=== PATIENT | male | born 1965 | race Caucasian/White ===

== ENCOUNTER → 2019-09-15 | Outpatient (REF) | payer SELFPAY ==
[2019-09-15 15:13] LABS: BASO # 0.1 10^3/uL (0.0-0.2); BASO % 0.8 % (0.0-1.0); EOS # 0.2 10^3/uL (0.0-0.5); EOS % 2.2 % (0.0-3.0); HEMATOCRIT 42.8 % (42.0-52.0); HEMOGLOBIN 14.2 g/dl (13.5-17.5); LYMPH # 2.8 10^3/uL (1.5-5.0); LYMPH % 32.6 % (24.0-44.0); MEAN CORPUSCULAR HEMOGLOBIN 32.8 pg (27.0-33.0); MEAN CORPUSCULAR HGB CONC 33.2 g/dl (32.0-36.5); MEAN CORPUSCULAR VOLUME 98.8 fl (80.0-96.0); MONO # 0.7 10^3/uL (0.0-0.8); NEUTROPHILS # 4.8 10^3/uL (1.5-8.5); NEUTROPHILS % 55.7 % (36.0-66.0); PLATELET COUNT, AUTOMATED 270 10^3/uL (150-450); RED BLOOD COUNT 4.33 10^6/uL (4.30-6.10); WHITE BLOOD COUNT 8.6 10^3/uL (4.0-10.0)
[2019-09-15 15:33] LABS: ALBUMIN 3.8 GM/DL (3.2-5.2); ALT/SGPT 38 U/L (12-78); BILIRUBIN,TOTAL 0.7 MG/DL (0.2-1.0); BLOOD UREA NITROGEN 10 MG/DL (7-18); CALCIUM LEVEL 9.4 MG/DL (8.5-10.1); CARBON DIOXIDE LEVEL 26 MEQ/L (21-32); CHLORIDE LEVEL 105 MEQ/L (98-107); CHOLESTEROL LEVEL 149 MG/DL (<200); CHOLESTEROL RISK RATIO 2.811 (<5); CREATININE FOR GFR 0.93 MG/DL (0.70-1.30); GLOMERULAR FILTRATION RATE > 60.0 (>56); GLUCOSE, FASTING 103 MG/DL (70-100); HDL CHOLESTEROL 53 MG/DL (>40); LDL CHOLESTEROL 45 MG/DL (<100); NON-HDL-C 96 MG/DL; POTASSIUM SERUM 4.9 MEQ/L (3.5-5.1); SODIUM LEVEL 139 MEQ/L (136-145); TOTAL PROTEIN 7.2 GM/DL (6.4-8.2); TRIGLYCERIDES LEVEL 255 MG/DL (<150)
[2019-09-15 16:03] LABS: HEMOGLOBIN A1c 5.5 %
== END ==
LOC: M SFHCADAM 07:59
PROVIDERS: ATTEND Family Medicine
DX: R53.81 Other malaise (principal); R53.1 Weakness; I25.10 Atherosclerotic heart disease of native coronary artery without angina pectoris

== ENCOUNTER 2020-08-07 10:30 | Inpatient (IN) | payer SELFPAY ==
[~2020-08-07] VITALS: Ht 172.7 cm; Wt 82.0 kg
[2020-08-07 11:14] LABS: BASO % 0.2 % (0.0-1.0); HEMATOCRIT 47.5 % (42.0-52.0); HEMOGLOBIN 15.7 g/dl (13.5-17.5); LYMPH # 1.1 10^3/uL (1.5-5.0); LYMPH % 6.3 % (24.0-44.0); MEAN CORPUSCULAR HEMOGLOBIN 30.6 pg (27.0-33.0); MEAN CORPUSCULAR HGB CONC 33.1 g/dl (32.0-36.5); MEAN CORPUSCULAR VOLUME 92.6 fl (80.0-96.0); MONO # 0.7 10^3/uL (0.0-0.8); MONO % 4.2 % (0.0-5.0); NEUTROPHILS # 15.1 10^3/uL (1.5-8.5); NEUTROPHILS % 88.9 % (36.0-66.0); PLATELET COUNT, AUTOMATED 201 10^3/uL (150-450); RED BLOOD COUNT 5.13 10^6/uL (4.30-6.10)
--- NOTE | 2020-08-07 11:18 | REP ---
INDICATION: abl pain COMPARISON: None. TECHNIQUE: Portable AP view of the chest FINDINGS: The mediastinum and cardiac silhouette are stable and within normal limits for portable technique. The lung omalley are clear without acute consolidation, effusion, or pneumothorax. Skeletal structures are intact; evidence for old healed left clavicle fracture. IMPRESSION: No acute cardiopulmonary process appreciated. <Electronically signed by Alvin Mohamud > 08/07/20 [id number]
[2020-08-07] MEDS ORDERED: ISOVUE-370 76% 100ML VIAL As Ordered ONE (11:28)
[2020-08-07] MEDS ORDERED: MORPHINE 4 MG/ML 1ML VIAL/SYRINGE (J2270) IV ONE (11:30)
[2020-08-07] MEDS ORDERED: ONDANSETRON 4MG/2ML VIAL IV ONE (11:30)
[2020-08-07 11:51] LABS: ALBUMIN 3.9 GM/DL (3.2-5.2); BILIRUBIN,DIRECT 0.4 MG/DL (0.0-0.2); FREE T4 1.05 NG/DL (0.76-1.46); THYROID STIMULATING HORMONE 0.969 uIU/ML (0.358-3.740); TOTAL PROTEIN 7.2 GM/DL (6.4-8.2)
--- NOTE | 2020-08-07 12:00 | REP ---
INDICATION: dyspnea COMPARISON: None. TECHNIQUE: Axial contrast enhanced images from the thoracic inlet to the upper abdomen using pulmonary embolus technique with multiplanar re-formations. 100 ml Isovue 370 intravenous contrast material administered without complication. This CT examination was performed using the following dose reduction techniques: Automated exposure control, adjustment of mA and/or kv according to the patient's size, and use of iterative reconstruction technique. FINDINGS: Thoracic aorta demonstrates mild atherosclerotic changes without aneurysm or dissection. Pulmonary vasculature is grossly normal and without obvious embolus. Atherosclerotic changes to the coronary arteries are also identified without cardiomegaly or pericardial effusion. Lung omalley demonstrate minimal scattered atelectasis primarily noted at the lingula and bilateral bases. No effusion. No pneumothorax. Tracheobronchial tree is patent. No adenopathy. Surrounding musculoskeletal structures are intact. IMPRESSION: 1. Minimal scattered atelectasis. 2. Atherosclerotic changes to the thoracic aorta and coronary arteries. No aortic aneurysm. No obvious pulmonary embolus. <Electronically signed by Alvin Mohamud > 08/07/20 [id number]
--- NOTE | 2020-08-07 12:04 | REP ---
INDICATION: generalized abd pain/distention. COMPARISON: None TECHNIQUE: Axial contrast-enhanced images from the lung bases to the pubic symphysis using 100 cc Isovue 370 intravenous contrast material. Coronal and sagittal reformations obtained.. This CT examination was performed using the following dose reduction techniques: Automated exposure control, adjustment of mA and/or kv according to the patient's size, and the use of iterative reconstruction technique. FINDINGS: Significant peripancreatic and generalized upper abdominal mesenteric/retroperitoneal inflammatory stranding along with small amount of ascites is most compatible with acute pancreatitis and correlation is recommended. The pancreatic parenchyma demonstrates homogeneous normal enhancement without evidence for areas of infarction. No drainable collection/abscess or pseudocyst identified. Diffuse fatty infiltration to the liver noted. Spleen is unremarkable. The gallbladder is moderately distended without obvious gallstones. The bilateral adrenal glands and kidneys are normal. The enteric system is without obstruction or definite primary acute inflammatory process. Normal terminal ileum and appendix identified in the right lower quadrant. Pelvis demonstrates layering ascites with normal bladder and prostate/seminal vesicles. No significant adenopathy. No free air. Abdominal aorta and vasculature without aneurysm or dissection. IMPRESSION: Findings described above consistent with acute pancreatitis. Hepatosteatosis. Mildly prominent gallbladder without obvious gallstones. <Electronically signed by Alvin Mohamud > 08/07/20 1200
[2020-08-07] MEDS ORDERED: NS 1,000 ML IV SCH (12:15)
[2020-08-07] MEDS: MORPHINE 4 MG/ML 1ML VIAL/SYRINGE (J2270) IV PRN ×4 (12:19→21:29)
[2020-08-07] MEDS: LR 1,000 ML IV SCH ×3 (13:26→21:29)
[2020-08-07] MEDS ORDERED: D31000TA2 PO (13:30)
[2020-08-07] MEDS ORDERED: ASPI-161 PO (13:30)
[2020-08-07] MEDS ORDERED: REST0.05 OU (13:30)
[2020-08-07] MEDS ORDERED: C-251TAB PO (13:30)
[2020-08-07] MEDS ORDERED: ATOR80TA59 PO (13:30)
[2020-08-07] MEDS ORDERED: LISI40TA PO (13:30)
--- NOTE | 2020-08-07 13:58 | HPEPDOC ---
General Date of Admission 08/07/20 Date of Service: Aug 07, 2020 Chief Complaint The patient is a 55-year-old male admitted with a reason for visit of Chest/Back/Abdominal Pain. History of Present Illness 55 year old male with PMH of pancreatitis was told was from a medication, CAD s/p angioplasty, HTN, HLD presented to ED with complaints of acute onset chest and upper abdominal pain from yesterday morning. His pain is 10/10 sharp aching in nature located in the lower part of central chest and epigastrium and going to the back. Pain worsening with laying down adn turning from side to side. Work up in the ED showed a lipase> 41394. CT abdomen pelvis showed significant peripancreatic and generalized upper abdominal mesenteric/retroperitoneal inflammatory stranding along with small amount of ascites is most compatible with acute pancreatitis. Patient also notes that his son in law just bought a farm 1 month ago and he has been drinking a lot of fresh cows milk and feels that may have precipitated the attack. He did report that he drank 2 beers the night before the pain started. Patient was admitted for Acute pancreatitis. Home Medications Scheduled Ascorbic Acid (Vitamin C) 250 Mg Tablet, 250 MG PO QHS, (Reported) Aspirin (Aspirin EC) 81 Mg Tablet.dr, 81 MG PO QHS, (Reported) Atorvastatin Calcium (Atorvastatin Calcium) 80 Mg Tablet, 80 MG PO QHS, (Reported) Cholecalciferol (Vitamin D3) (Vitamin D3) 1,000 Unit Tablet, 1,000 UNITS PO QHS, (Reported) Cyclosporine (Restasis) 0.05% Droperette, 1 DROP OU BID, (Reported) Lisinopril (Lisinopril) 40 Mg Tablet, 40 MG PO QHS, (Reported) Scheduled PRN Acetaminophen with Codeine (Acetaminophen-Cod #3 Tablet) 1 Each Tablet, 1 EA PO Q8HP PRN for MODERATE BREAKTHROUGH PAIN Allergies Coded Allergies: No Known Drug Allergies (Verified Allergy, Unknown, UNKNOWN ANTIBIOTIC CAUSED PANCREATITIS YEARS AGO PER PATIENT, 08/09/20) Past Medical History Medical History CAD, S/P NV/ Angioplasty HTN Hyperlipidemia PANCREATITIS IN 2018 CELLULITIS AFTER DOG BITE (2017) Chronic bilateral shoulder pain Surgical History L SIDED HERNIA (CHILDHOOD) NECK FUSION CORONARY ANGIOPLASTY -- NO STENT, JUST BALLOONED; [facility] 2010 Family History Significant Family History: Heart disease, Hypertension No history of pancreatitis in the family Social History * Smoker: current smoker Alcohol: occationally (3 to 4 beers every other day. ) Drugs: denies A-FIB/CHADSVASC A-FIB History Current/History of A-Fib/PAF?: No Review of Systems Constitutional: Denies: Chills, Fever, Night Sweats Eyes: Denies: Pain, Vision change ENT: Denies: Head Aches, Ear Pain, Dysphagia Skin: Denies: Rash, Lesions, Breakdown Pulmonary: Denies: Dyspnea, Cough Cardiovascular: Denies: Chest Pain, Palpitations, Orthopnea, Paroxysmal Noc. Dyspnea, Lt Headedness Gastrointestinal: Reports: Nausea, Abdominal Pain; Denies: Vomiting, Diarrhea Genitourinary: Denies: Dysuria, Frequency, Incontinence, Retention Hematologic: Denies: Bruising, Bleeding Excessively Musculoskeletal: Denies: Neck Pain, Back Pain, Joint Pain, Muscle Pain, Spasms Physical Examination General Exam: Positive: Alert, Cooperative, Mild Distress Eye Exam: Positive: PERRLA, Conjunctiva & lids normal, EOMI; Negative: Sclera icteric ENT Exam: Positive: Atraumatic, Mucous membr. moist/pink, Pharynx Normal Neck Exam: Positive: Supple; Negative: JVD, thyromegaly Chest Exam: Positive: Clear to auscultation, Normal air movement; Negative: Rales, Rhonchi, Wheezing Heart Exam: Positive: Rate Normal, Regular Rhythm, Normal S1, Normal S2; Negative: Murmurs, Rubs Abdomen Exam: Positive: Normal bowel sounds, Soft, Tenderness (in the epigastrium), Other (No guarding or rigidity.) Extremity Exam: Positive: Normal pulses; Negative: Clubbing, Cyanosis, Edema Skin Exam: Positive: Nl turgor and temperature; Negative: Breakdown, Lesion Neuro Exam: Positive: Normal Gait, Normal Speech, Cranial Nerves 3-12 NL, Reflexes 2+ Vital Signs Vital Signs Date Time Temp Pulse Resp B/P (MAP) Pulse Ox O2 Delivery O2 Flow Rate FiO2 08/07/20 12:19 18 96 08/07/20 11:46 172/80 (110) 08/07/20 11:45 108 Room Air 08/07/20 10:56 98.3 Laboratory Data Labs 24H Laboratory Tests 2 08/07/20 11:00: Immature Granulocyte % (Auto) 0.4, Neutrophils (%) (Auto) 88.9H, Lymphocytes (%) (Auto) 6.3L, Monocytes (%) (Auto) 4.2, Eosinophils (%) (Auto) 0.0, Basophils (%) (Auto) 0.2, Neutrophils # (Auto) 15.1H, Lymphocytes # (Auto) 1.1L, Monocytes # (Auto) 0.7, Eosinophils # (Auto) 0.0, Basophils # (Auto) 0.0, Nucleated Red Blood Cells % (auto) 0.0, POC Glucose (Misc Panel) 124H, POC Sodium (Misc Panel) 134L, POC Potassium (Misc Panel) 4.0, POC Chloride (Misc Panel) 99, POC Total CO2 (Misc Panel) 21.0L, POC Blood Urea Nitrogen (Misc Panel 16, POC Ionized Calcium (Misc Panel) 4.2L, POC Creatinine (Misc Panel) 1.0, POC Hematocrit (Misc Panel) 51.0, Total Bilirubin 1.0, Direct Bilirubin 0.4H, Aspartate Amino Transf (AST/SGOT) 28, Alanine Aminotransferase (ALT/SGPT) 26, Alkaline Phosphatase 85, WA-Nfw-H-Type Natriuretic Peptide 218H, Total Protein 7.2, Albumin 3.9, Albumin/Globulin Ratio 1.2, Lipase 63928J, Thyroid Stimulating Hormone (TSH) 0.969, Free Thyroxine 1.05 08/07/20 11:02: POC Lactate (Misc Panel) 1.32, POC Troponin I (Misc) 0.00 08/07/20 11:08: POC Prothrombin Time (Misc) 12.2, POC INR (Misc) 1.0 CBC/BMP Laboratory Tests 08/07/20 11:00 Assessment/Plan 55 year old male with PMH of pancreatitis was told was from a medication, CAD s/p angioplasty, HTN, HLD presented to ED with complaints of acute onset chest and upper abdominal pain from yesterday morning. Work up in the ED showed a lipase> 94570. CT abdomen pelvis showed significant peripancreatic and generalized upper abdominal mesenteric/retroperitoneal inflammatory stranding along with small amount of ascites is most compatible with acute pancreatitis. Also shows diffuse fatty infiltration to the liver noted. Spleen is unr emarkable. The gallbladder is moderately distended without obvious gallstones. Patient was admitted for Acute pancreatitis. Acute pancreatitis No gall stones seen, Triglyceride normal. NPO, IVF, morphine Pantoprazole, Zofran. Hypertension continue home meds Hyperlipidemia will hold statin for now. Plan / VTE VTE Prophylaxis Ordered?: Yes ITMBO WALTON MD Aug 07, 2020 12:33
[2020-08-07 14:20] VITALS: BP 152/96
[2020-08-07] MEDS: ENOXAPARIN 40MG/0.4ML SYRINGE (J1650 PER 10MG) SC SCH (15:31)
[2020-08-07] MEDS: PANTOPRAZOLE 40MG VIAL (C9113 PER 1) IV SCH (15:31)
[2020-08-07] MEDS ORDERED: KETOROLAC 30 MG/ML 1ML VIAL IV ONE (16:00)
[2020-08-07] MEDS: ONDANSETRON 4MG/2ML VIAL IV PRN ×2 (18:11→21:29)
[2020-08-07] MEDS ORDERED: KETOROLAC 30 MG/ML 1ML VIAL IV PRN (21:00)
[2020-08-07] MEDS ORDERED: ASPIRIN 81 MG ENTERIC TAB PO SCH (21:00)
[2020-08-07] MEDS: lisinopriL 40 MG TAB PO SCH (21:29)
[2020-08-07 22:00] VITALS: BP 152/84
[2020-08-08] VITALS (16 sets, daily range): BP systolic 122–162; BP diastolic 80–100; O2SAT 90–95
[2020-08-08] MEDS: MORPHINE 4 MG/ML 1ML VIAL/SYRINGE (J2270) IV PRN ×3 (02:16→06:22)
[2020-08-08] MEDS: LR 1,000 ML IV SCH ×4 (02:16→17:04)
[2020-08-08] MEDS: ONDANSETRON 4MG/2ML VIAL IV PRN ×2 (03:52→16:33)
[2020-08-08 06:59] LABS: HEMATOCRIT 37.3 % (42.0-52.0); HEMOGLOBIN 12.8 g/dl (13.5-17.5); MEAN CORPUSCULAR HGB CONC 34.3 g/dl (32.0-36.5); MEAN CORPUSCULAR VOLUME 93.3 fl (80.0-96.0); PLATELET COUNT, AUTOMATED 133 10^3/uL (150-450); WHITE BLOOD COUNT 14.5 10^3/uL (4.0-10.0)
[2020-08-08] MEDS ORDERED: MORPHINE 2 MG/ML 1ML VIAL (J2270) IV PRN ×2 (07:00→09:00)
[2020-08-08 07:32] LABS: BLOOD UREA NITROGEN 14 MG/DL (7-18); CALCIUM LEVEL 6.9 MG/DL (8.5-10.1); CARBON DIOXIDE LEVEL 23 MEQ/L (21-32); CHLORIDE LEVEL 104 MEQ/L (98-107); CREATININE FOR GFR 0.78 MG/DL (0.70-1.30); GLOMERULAR FILTRATION RATE > 60.0 (>56); GLUCOSE, FASTING 112 MG/DL (70-100); LIPASE 4508 U/L (73-393); POTASSIUM SERUM 3.7 MEQ/L (3.5-5.1); SODIUM LEVEL 134 MEQ/L (136-145)
[2020-08-08 08:08] LABS: LYMPHOCYTES 2 % (16-44); MONOCYTES 2 % (0-5); NEUTROPHILS 85 % (28-66)
[2020-08-08 08:09] LABS: PLATELET ESTIMATE DECREASED (NORMAL)
[2020-08-08 08:10] LABS: DOHLE BODIES 2+
[2020-08-08] MEDS: ENOXAPARIN 40MG/0.4ML SYRINGE (J1650 PER 10MG) SC SCH (08:25)
[2020-08-08] MEDS ORDERED: NS 1,000 ML IV ONE (08:45)
[2020-08-08] MEDS ORDERED: KETOROLAC 30 MG/ML 1ML VIAL IV SCH (09:00)
[2020-08-08] MEDS ORDERED: CALCIUM GLUCONATE 1,000 MG in D5W MINI-BAG PLUS 100 ML IV ONE (09:00)
[2020-08-08] MEDS ORDERED: HYDROMORPHONE HCL 0.5 MG/ 0.5 ML SYRINGE (J1170 PER 1) IV PRN (09:00)
[2020-08-08] MEDS: HYDROmorphone HCL 2 MG/ML 1ML VIAL (J1170) IV PRN ×5 (09:57→23:00)
--- NOTE | 2020-08-08 11:28 | IPNPDOC ---
Text Note Date of Service The patient was seen on 08/08/20. NOTE Subjective: Low grade fever overnight, poor urine output. Increased abdominal distension, Severe pain all night not controlled with morphine.Very tachycardic so moved to telemetry unit. Reports that he is passing gas. Physical Exam: Vitals as below General Exam: Positive: Awake, Alert, Cooperative, moderate distress. Eye Exam: Positive: PERRLA, Conjunctiva & lids normal, EOMI; Negative: Sclera icteric ENT Exam: Positive: Atraumatic, Mucous membr. moist/pink, Pharynx Normal Neck Exam: Positive: Supple; Negative: JVD, thyromegaly Chest Exam: Positive: Clear to auscultation anteriorly, Normal air movement; Diminished breath sounds at the bases. Negative: Rales, Rhonchi, Wheezing Heart Exam: Positive: Rate tachycardic, Regular Rhythm, Normal S1, Normal S2; Negative: Murmurs, Rubs Abdomen Exam: Positive: Sluggish bowel sounds, distended, generalized te nderness. Extremity Exam: Positive: Normal pulses; Negative: Clubbing, Cyanosis, Edema Skin Exam: Positive: Nl turgor and temperature; Negative: Breakdown, Lesion Labs and radiology: reviewed. Assessment and plan: 55 year old male with PMH of pancreatitis was told was from a medication, CAD s/p angioplasty, HTN, HLD presented to ED with complaints of acute onset chest and upper abdominal pain from yesterday morning. Work up in the ED showed a lipase> 73623. CT abdomen pelvis showed significant peripancreatic and generalized upper abdominal mesenteric/retroperitoneal inflammatory stranding along with small amount of ascites is most compatible with acute pancreatitis. Also shows diffuse fatty infiltration to the liver noted. Spleen is unremarkable. The gallbladder is moderately distended without obvious gallstones. Patient was admitted for Acute pancreatitis. Acute pancreatitis Second episode No gall stones seen, No CBD dilatation, Triglyceride normal. NPO, IVF, dilaudid Pantoprazole, Zofran. SIRS due to acute pancreatitis continue with IVF loading, tylenol for fever, pain control. Ileus due to acute pancreatitis. abdominal distension, sluggish bowel sounds. continue NPO, IVF Hypocalcemia will replace calcium. Hypertension continue home meds Hyperlipidemia will hold statin for now. VS,Fishbone, I+O VS, Fishbone, I+O Laboratory Tests 08/08/20 06:31 Vital Signs Date Time Temp Pulse Resp B/P (MAP) Pulse Ox O2 Delivery O2 Flow Rate FiO2 08/08/20 10:07 18 Nasal Cannula 2.0 08/08/20 10:00 99.5 08/08/20 08:00 121 139/93 (108) 93 I&O- Last 24 Hours up to 6 AM 08/08/20 06:00 Intake Total 3980 ml Output Total 550 ml Balance 3430 ml TIMBO WALTON MD Aug 08, 2020 11:28
[2020-08-08 11:46] LABS: CHOLESTEROL LEVEL 107 MG/DL (<200); CHOLESTEROL RISK RATIO 5.095 (<5); HDL CHOLESTEROL 21 MG/DL (>40); LDL CHOLESTEROL 27 MG/DL (<100); NON-HDL-C 86 MG/DL; TRIGLYCERIDES LEVEL 296 MG/DL (<150)
[2020-08-08] MEDS: PANTOPRAZOLE 40MG VIAL (C9113 PER 1) IV SCH (13:11)
[2020-08-08] MEDS: ACETAMINOPHEN TAB 650MG DOSE (2X325MG) PO PRN (17:46)
[2020-08-08] MEDS: lisinopriL 40 MG TAB PO SCH (20:02)
[2020-08-09] VITALS (19 sets, daily range): BP systolic 134–165; BP diastolic 77–94; O2SAT 88–95
[2020-08-09] MEDS: ACETAMINOPHEN TAB 650MG DOSE (2X325MG) PO PRN ×2 (01:01→07:40)
[2020-08-09] MEDS: HYDROmorphone HCL 2 MG/ML 1ML VIAL (J1170) IV PRN ×6 (02:27→23:03)
[2020-08-09] MEDS: LR 1,000 ML IV SCH ×2 (05:26→09:46)
[2020-08-09 05:53] LABS: HEMATOCRIT 31.8 % (42.0-52.0); MEAN CORPUSCULAR HEMOGLOBIN 31.5 pg (27.0-33.0); MEAN CORPUSCULAR VOLUME 95.5 fl (80.0-96.0); RED BLOOD COUNT 3.33 10^6/uL (4.30-6.10); WHITE BLOOD COUNT 12.3 10^3/uL (4.0-10.0)
[2020-08-09 05:59] LABS: HEMOGLOBIN 10.5 g/dl (13.5-17.5); PLATELET COUNT, AUTOMATED 93 10^3/uL (150-450)
[2020-08-09 06:18] LABS: ALBUMIN 2.3 GM/DL (3.2-5.2); ALT/SGPT 14 U/L (12-78); BILIRUBIN,DIRECT 0.5 MG/DL (0.0-0.2); BLOOD UREA NITROGEN 9 MG/DL (7-18); CALCIUM LEVEL 6.6 MG/DL (8.5-10.1); CARBON DIOXIDE LEVEL 26 MEQ/L (21-32); CHLORIDE LEVEL 103 MEQ/L (98-107); CREATININE FOR GFR 0.64 MG/DL (0.70-1.30); GLOMERULAR FILTRATION RATE > 60.0 (>56); GLUCOSE, FASTING 82 MG/DL (70-100); LIPASE 1103 U/L (73-393); MAGNESIUM LEVEL 1.6 MG/DL (1.8-2.4); POTASSIUM SERUM 3.5 MEQ/L (3.5-5.1); SODIUM LEVEL 135 MEQ/L (136-145); TOTAL PROTEIN 4.8 GM/DL (6.4-8.2)
[2020-08-09 06:36] LABS: LYMPHOCYTES 10 % (16-44); MONOCYTES 4 % (0-5); NEUTROPHILS 85 % (28-66); PLATELET ESTIMATE DECREASED (NORMAL)
[2020-08-09] MEDS ORDERED: CALCIUM GLUCONATE 1,000 MG in D5W MINI-BAG PLUS 100 ML IV ONE (08:00)
--- NOTE | 2020-08-09 08:59 | ECGEPIP ---
[facility] - ED Test Date: 2020-08-07 Pat Name: JAYA SCHMID Department: Room: [place] [address] Gender: Male Distribution Sales Representative: TIANA : 1965 Requested By: EVGENY GUERRERO Order Number: [id number] Reading MD: Mavis Charles Measurements Intervals [place] Rate: 108 P: 58 SC: 154 QRS: 15 QRSD: 113 T: 83 QT: 324 QTc: 435 Interpretive Statements SINUS TACHYCARDIA MODERATE INTRAVENTRICULAR CONDUCTION DELAY ABNORMAL RHYTHM ECG NSTTW abnormalities No prior Electronically Signed on 08-09-2020 8:58:50 EDT by Mavis Charles
[2020-08-09] MEDS ORDERED: MAG SULF 1GM/100ML (MAG RUN) 1 GM in IV 1 EA IV ONE (09:00)
[2020-08-09] MEDS ORDERED: ENOXAPARIN 60MG/0.6ML SYRINGE (J1650 PER 10MG) SC SCH (09:00)
--- NOTE | 2020-08-09 11:20 | IPNPDOC ---
Text Note Date of Service The patient was seen on 08/09/20. NOTE Subjective: Low grade fever overnight, poor urine output. Increased abdominal distension, Pain better controlled today. Needing oxygen overnight. Reports that he is passing gas. No bowel movement. Physical Exam: Vitals as below General Exam: Positive: Awake, Alert, Cooperative, moderate distress. Eye Exam: Positive: PERRLA, Conjunctiva & lids normal, EOMI; Negative: Sclera icteric ENT Exam: Positive: Atraumatic, Mucous membr. moist/pink, Pharynx Normal Neck Exam: Positive: Supple; Negative: JVD, thyromegaly Chest Exam: Positive: Clear to auscultation anteriorly, Diminished breath sounds at the bases. No ronchi or crackles heard. Negative: Rales, Rhonchi, Wheezing Heart Exam: Positive: Rate tachycardic, Regular Rhythm, Normal S1, Normal S2; Negative: Murmurs, Rubs Abdomen Exam: Positive: Sluggish bowel sounds, tinkling sounds heard distended, generalized tenderness. No rebound , no guarding. Extremity Exam: Positive: Normal pulses; Negative: Clubbing, Cyanosis, Edema Skin Exam: Positive: Nl turgor and temperature; Negative: Breakdown, Lesion Labs and radiology: reviewed. Assessment and plan: 55 year old male with PMH of pancreatitis was told was from a medication, CAD s/p angioplasty, HTN, HLD presented to ED with complaints of a cute onset chest and upper abdominal pain from yesterday morning. Work up in the ED showed a lipase> 46496. CT abdomen pelvis showed significant peripancreatic and generalized upper abdominal mesenteric/retroperitoneal inflammatory stranding along with small amount of ascites is most compatible with acute pancreatitis. Also shows diffuse fatty infiltration to the liver noted. Spleen is unremarkable. The gallbladder is moderately distended without obvious gallstones. Patient was admitted for Acute pancreatitis. Acute pancreatitis Second episode No gall stones seen, No CBD dilatation, Triglyceride normal. NPO, IVF, dilaudid Pantoprazole, Zofran. SIRS due to acute pancreatitis continue with IVF , tylenol for fever, pain control. Ileus due to acute pancreatitis. abdominal distension, sluggish bowel sounds. continue NPO, IVF Hypocalcemia will replace calcium. Hypomagnesemia replaced. Hypertension continue home meds Hyperlipidemia will hold statin for now. VS,Fishbone, I+O VS, Fishbone, I+O Laboratory Tests 08/09/20 05:41 Vital Signs Date Time Temp Pulse Resp B/P (MAP) Pulse Ox O2 Delivery O2 Flow Rate FiO2 08/09/20 08:52 20 Nasal Cannula 4.0 08/09/20 08:00 97.5 118 154/77 (102 93 I&O- Last 24 Hours up to 6 AM 08/09/20 06:00 Intake Total 3760 ml Output Total 1250 ml Balance 2510 ml TIMBO WALTON MD Aug 09, 2020 11:20
[2020-08-09] MEDS: D5W/0.9% SODIUM CHLORIDE 1,000 ML IV SCH (11:53)
[2020-08-09] MEDS: PANTOPRAZOLE 40MG VIAL (C9113 PER 1) IV SCH (13:15)
[2020-08-09] MEDS ORDERED: PERCOCET 5MG/325MG TAB PO PRN ×2 (13:30)
[2020-08-09] MEDS ORDERED: FLUBLOK(EGG FREE)(QUAD)INFLUENZA VACC 0.5ML SYRINGE 18YRS & OLDER IM ONE (16:00)
[2020-08-09] MEDS: ONDANSETRON 4MG/2ML VIAL IV PRN (17:45)
[2020-08-09] MEDS: lisinopriL 40 MG TAB PO SCH (20:06)
[2020-08-10] VITALS: BP 150/88
[2020-08-10] MEDS: D5W/0.9% SODIUM CHLORIDE 1,000 ML IV SCH (00:50)
[2020-08-10] MEDS: HYDROmorphone HCL 2 MG/ML 1ML VIAL (J1170) IV PRN ×8 (02:35→22:51)
[2020-08-10] MEDS: ACETAMINOPHEN TAB 650MG DOSE (2X325MG) PO PRN (02:36)
[2020-08-10 04:00] VITALS: BP 163/85
[2020-08-10 04:48] LABS: BASO % 0.1 % (0.0-1.0); EOS % 0.3 % (0.0-3.0); HEMATOCRIT 30.5 % (42.0-52.0); HEMOGLOBIN 10.2 g/dl (13.5-17.5); LYMPH # 0.7 10^3/uL (1.5-5.0); MEAN CORPUSCULAR HGB CONC 33.4 g/dl (32.0-36.5); MEAN CORPUSCULAR VOLUME 95.6 fl (80.0-96.0); MONO # 0.9 10^3/uL (0.0-0.8); MONO % 7.6 % (0.0-5.0); NEUTROPHILS % 85.2 % (36.0-66.0); PLATELET COUNT, AUTOMATED 104 10^3/uL (150-450); RED BLOOD COUNT 3.19 10^6/uL (4.30-6.10); WHITE BLOOD COUNT 11.8 10^3/uL (4.0-10.0)
[2020-08-10 05:10] LABS: BLOOD UREA NITROGEN 6 MG/DL (7-18); CALCIUM LEVEL 7.4 MG/DL (8.5-10.1); CARBON DIOXIDE LEVEL 27 MEQ/L (21-32); CHLORIDE LEVEL 102 MEQ/L (98-107); CREATININE FOR GFR 0.64 MG/DL (0.70-1.30); GLOMERULAR FILTRATION RATE > 60.0 (>56); GLUCOSE, FASTING 134 MG/DL (70-100); LIPASE 314 U/L (73-393); POTASSIUM SERUM 3.2 MEQ/L (3.5-5.1); SODIUM LEVEL 135 MEQ/L (136-145)
[2020-08-10] MEDS: KCL 40MEQ IN D5/NS 1000ML 1,000 ML IV SCH (07:15)
[2020-08-10 08:00] VITALS: BP 142/89
[2020-08-10] MEDS: KCL 10MEQ/100ML SWI (KRUN) 10 MEQ in IV 1 EA IV SCH ×2 (09:00→09:32)
[2020-08-10] MEDS ORDERED: HYDROMORPHONE HCL 0.5 MG/ 0.5 ML SYRINGE (J1170 PER 1) IV PRN (10:00)
[2020-08-10] MEDS ORDERED: SLF 3 ML SYR IV PRN (11:00)
--- NOTE | 2020-08-10 11:10 | IPNPDOC ---
Text Note Date of Service The patient was seen on 08/10/20. NOTE Subjective: Still with severe abdominal pain, could not tolerate po pain meds yesterday. Now urine output has excelsior picker up and is much surgical oncologist in color, No fevers, No nausea or vomiting. patietn upset as did not get pain meds on time last night and reports he was crying in pain all night. Requiring oxygen when sleeping. Physical Exam: Vitals as below General Exam: Positive: Awake, Alert, Cooperative, moderate distress. Eye Exam: Positive: PERRLA, Conjunctiva & lids normal, EOMI; Negative: Sclera icteric ENT Exam: Positive: Atraumatic, Mucous membr. moist/pink, Pharynx Normal Neck Exam: Positive: Supple; Negative: JVD, thyromegaly Chest Exam: Positive: Clear to auscultation anteriorly, Diminished breath sounds at the bases. No ronchi or crackles heard. Negative: Rales, Rhonchi, Wheezing Heart Exam: Positive: Rate tachycardic, Regular Rhythm, Normal S1, Normal S2; Negative: Murmurs, Rubs Abdomen Exam: Positive: Sluggish bowel sounds, tinkling sounds heard distended abdomen, generalized tenderness. No rebound , no guarding. Extremity Exam: Positive: Normal pulses; Negative: Clubbing, Cyanosis, Edema Skin Exam: Positive: Nl turgor and temperature; Negative: Breakdown, Lesion Labs and radiology: reviewed. Assessment and plan: 55 year old male with PMH of pancreatitis was told was from a medication, CAD s/p angioplasty, HTN, HLD presented to ED with complaints of acute onset chest and upper abdominal pain from yesterday morning. Work up in the ED showed a lipase> 46961. CT abdomen pelvis showed significant peripancreatic and generalized upper abdominal mesenteric/retroperitoneal inflammatory stranding along with small amount of ascites is most compatible with acute pancreatitis. Also shows diffuse fatty infiltration to the liver noted. Spleen is unremarkable. The gallbladder is moderately distended without obvious gallstones. Patient was admitted for Acute pancreatitis. Acute pancreatitis Second episode No gall stones seen, No CBD dilatation, Triglyceride normal. IVF, dilaudid Pantoprazole, Zofran. Lipase normal today, will try clears. Encourage ambulation. SIRS due to acute pancreatitis continue with IVF, pain control. Ileus due to acute pancreatitis. abdominal distension, sluggish bowel sounds. continue IVF , will try clears. Hypoxia will give incentive spirometry. Hypocalcemia will replace calcium. Hypomagnesemia replaced. Hypertension continue home meds Hyperlipidemia will hold statin for now. Thrombocytopenia so lovenox was stopped now improving. DVT prophylaxis in place. TEDS VS,Fishbone, I+O VS, Fishbone, I+O Laboratory Tests 08/10/20 04:26 Vital Signs Date Time Temp Pulse Resp B/P (MAP) Pulse Ox O2 Delivery O2 Flow Rate FiO2 08/10/20 09:38 19 08/10/20 08:00 97.9 109 142/89 (106) 98 Nasal Cannula 3.0 I&O- Last 24 Hours up to 6 AM 08/10/20 05:59 Intake Total 1290 ml Output Total 2400 ml Balance -1110 ml TIMBO WALTON MD Aug 10, 2020 11:10
[2020-08-10] MEDS: SLF 3 ML SYR IV SCH ×2 (12:04→22:30)
[2020-08-10] MEDS: PANTOPRAZOLE 40MG VIAL (C9113 PER 1) IV SCH (12:04)
[2020-08-10 15:43] VITALS: BP 159/89
[2020-08-10] MEDS: lisinopriL 40 MG TAB PO SCH (19:57)
[2020-08-10 20:00] VITALS: BP 155/87
[2020-08-11] MEDS: KCL 40MEQ IN D5/NS 1000ML 1,000 ML IV SCH ×2 (01:01→09:55)
[2020-08-11] MEDS: HYDROmorphone HCL 2 MG/ML 1ML VIAL (J1170) IV PRN ×4 (01:35→11:40)
[2020-08-11 04:00] VITALS: BP 127/81
[2020-08-11 05:42] LABS: BASO % 0.2 % (0.0-1.0); EOS # 0.1 10^3/uL (0.0-0.5); EOS % 0.5 % (0.0-3.0); HEMATOCRIT 29.1 % (42.0-52.0); HEMOGLOBIN 9.6 g/dl (13.5-17.5); LYMPH # 0.9 10^3/uL (1.5-5.0); LYMPH % 8.6 % (24.0-44.0); MEAN CORPUSCULAR HEMOGLOBIN 31.6 pg (27.0-33.0); MEAN CORPUSCULAR VOLUME 95.7 fl (80.0-96.0); MONO # 1.2 10^3/uL (0.0-0.8); MONO % 10.9 % (0.0-5.0); NEUTROPHILS # 8.3 10^3/uL (1.5-8.5); NEUTROPHILS % 78.8 % (36.0-66.0); PLATELET COUNT, AUTOMATED 133 10^3/uL (150-450); RED BLOOD COUNT 3.04 10^6/uL (4.30-6.10); WHITE BLOOD COUNT 10.5 10^3/uL (4.0-10.0)
[2020-08-11] MEDS: SLF 3 ML SYR IV SCH ×3 (06:00→20:33)
[2020-08-11 06:02] LABS: BLOOD UREA NITROGEN 6 MG/DL (7-18); CALCIUM LEVEL 7.1 MG/DL (8.5-10.1); CARBON DIOXIDE LEVEL 28 MEQ/L (21-32); CHLORIDE LEVEL 104 MEQ/L (98-107); CREATININE FOR GFR 0.59 MG/DL (0.70-1.30); GLOMERULAR FILTRATION RATE > 60.0 (>56); GLUCOSE, FASTING 136 MG/DL (70-100); LIPASE 198 U/L (73-393); POTASSIUM SERUM 3.4 MEQ/L (3.5-5.1); SODIUM LEVEL 137 MEQ/L (136-145)
[2020-08-11 08:00] VITALS: BP 148/90
[2020-08-11] MEDS ORDERED: oxyCODONE 5MG TAB PO PRN (12:15)
[2020-08-11] MEDS ORDERED: HYDROMORPHONE HCL 0.5 MG/ 0.5 ML SYRINGE (J1170 PER 1) IV PRN ×2 (12:15)
--- NOTE | 2020-08-11 12:36 | IPNPDOC ---
Text Note Date of Service The patient was seen on 08/11/20. NOTE Subjective: Still with severe abdominal pain, Now urine output has picked up and is much coal loader in color, No fevers, No nausea or vomiting. Says not getting enough pain meds at night. He reported that the pain was so bad that he had almost stopped breathing last night and his oxygen had gone down. Abdominal distension still bad will get abdominal xray. Physical Exam: Vitals as below General Exam: Positive: Awake, Alert, Cooperative, moderate distress. Eye Exam: Positive: PERRLA, Conjunctiva & lids normal, EOMI; Negative: Sclera icteric ENT Exam: Positive: Atraumatic, Mucous membr. moist/pink, Pharynx Normal Neck Exam: Positive: Supple; Negative: JVD, thyromegaly Chest Exam: Positive: Clear to auscultation anteriorly, Diminished breath sounds at the bases. No ronchi or crackles heard. Negative: Rales, Rhonchi, Wheezing Heart Exam: Positive: Rate tachycardic, Regular Rhythm, Normal S1, Normal S2; Negative: Murmurs, Rubs Abdomen Exam: Positive: Bowel sounds good, distended abdomen but seems less tense, generalized tenderness. No rebound , no guarding. Extremity Exam: Positive: Normal pulses; Negative: Clubbing, Cyanosis, Edema Skin Exam: Positive: Nl turgor and temperature; Negative: Breakdown, Lesion Labs and radiology: reviewed. Assessment and plan: 55 year old male with PMH of pancreatitis was told was from a medication, CAD s/p angioplasty, HTN, HLD presented to ED with complaints of acute onset chest and upper abdominal pain from yesterday morning. Work up in the ED showed a lipase> 96386. CT abdomen pelvis showed significant peripancreatic and generalized upper abdominal mesenteric/retroperitoneal inflammatory stranding along with small amount of ascites is most compatible with acute pancreatitis. Also shows diffuse fatty infiltration to the liver noted. Spleen is unremarkable. The gallbladder is moderately distended without obvious gallstones. Patient was admitted for Acute pancreatitis. Acute pancreatitis Second episode No gall stones seen, No CBD dilatation, Triglyceride normal. IVF, dilaudid Pantoprazole, Zofran. Lipase normal today, will try clears. Encourage ambulation. will reduce dose of dilaudid and try oxycodone. SIRS due to acute pancreatitis continue with IVF, pain control. Ileus due to acute pancreatitis. continue IVF , clears. abdominal xray. Hypoxia will give incentive spirometry. Hypocalcemia will replace calcium. Hypomagnesemia replaced. Hypertension continue home meds Hyperlipidemia will hold statin for now. Thrombocytopenia so lovenox was stopped now improving. DVT prophylaxis in place. TEDS VS,Fishbone, I+O VS, Fishbone, I+O Laboratory Tests 08/11/20 05:16 Vital Signs Date Time Temp Pulse Resp B/P (MAP) Pulse Ox O2 Delivery O2 Flow Rate FiO2 08/11/20 12:10 20 08/11/20 08:00 3.0 08/11/20 08:00 98.9 112 148/90 (109) 92 Nasal Cannula I&O- Last 24 Hours up to 6 AM 08/11/20 06:00 Intake Total 1661 ml Output Total 1550 ml Balance 111 ml TIMBO WALTON MD Aug 11, 2020 12:36
[2020-08-11] MEDS: PANTOPRAZOLE 40MG VIAL (C9113 PER 1) IV SCH (13:12)
--- NOTE | 2020-08-11 14:44 | REP ---
INDICATION: abdominal distension. COMPARISON: Comparison CT study abdomen and pelvis August 07, 2020.. TECHNIQUE: Single supine view. FINDINGS: There is mild gaseous distention of the transverse colon and a few loops of air distended small bowel are seen scattered in the left and right mid mid abdomen. Findings consistent with mild persistent ileus. This is similar to the prior CT study bowel gas pattern. Vascular calcifications noted. Psoas margins are symmetric. IMPRESSION: Persistent ileus pattern in the bowel gas. <Electronically signed by Dionte Mcbride > 08/11/20 1972
[2020-08-11 16:00] VITALS: BP 137/77
[2020-08-11] MEDS: ACETAMINOPHEN TAB 650MG DOSE (2X325MG) PO PRN (16:23)
[2020-08-11 20:00] VITALS: BP 157/83
[2020-08-11] MEDS: lisinopriL 40 MG TAB PO SCH (20:32)
[2020-08-12] MEDS: ACETAMINOPHEN TAB 650MG DOSE (2X325MG) PO PRN (00:43)
[2020-08-12 01:35] VITALS: BP 151/83
[2020-08-12] MEDS: KCL 40MEQ IN D5/NS 1000ML 1,000 ML IV SCH ×2 (04:58→12:58)
[2020-08-12] MEDS: SLF 3 ML SYR IV SCH ×3 (05:02→22:00)
[2020-08-12 06:00] VITALS: BP 133/80
[2020-08-12 06:59] LABS: BASO % 0.2 % (0.0-1.0); EOS # 0.1 10^3/uL (0.0-0.5); EOS % 0.7 % (0.0-3.0); HEMATOCRIT 27.8 % (42.0-52.0); HEMOGLOBIN 9.2 g/dl (13.5-17.5); LYMPH # 1.1 10^3/uL (1.5-5.0); LYMPH % 11.3 % (24.0-44.0); MEAN CORPUSCULAR HGB CONC 33.1 g/dl (32.0-36.5); MEAN CORPUSCULAR VOLUME 93.6 fl (80.0-96.0); MONO # 1.3 10^3/uL (0.0-0.8); NEUTROPHILS # 7.2 10^3/uL (1.5-8.5); NEUTROPHILS % 72.4 % (36.0-66.0); PLATELET COUNT, AUTOMATED 173 10^3/uL (150-450); RED BLOOD COUNT 2.97 10^6/uL (4.30-6.10); WHITE BLOOD COUNT 9.9 10^3/uL (4.0-10.0)
[2020-08-12 07:11] LABS: BLOOD UREA NITROGEN 6 MG/DL (7-18); CALCIUM LEVEL 7.6 MG/DL (8.5-10.1); CARBON DIOXIDE LEVEL 24 MEQ/L (21-32); CHLORIDE LEVEL 106 MEQ/L (98-107); CREATININE FOR GFR 0.58 MG/DL (0.70-1.30); GLOMERULAR FILTRATION RATE > 60.0 (>56); GLUCOSE, FASTING 138 MG/DL (70-100); LIPASE 239 U/L (73-393); POTASSIUM SERUM 3.4 MEQ/L (3.5-5.1); SODIUM LEVEL 138 MEQ/L (136-145)
[2020-08-12] MEDS ORDERED: POTASSIUM CHLORIDE 10 MEQ SR TABLET PO ONE (10:45)
[2020-08-12] MEDS: ACETAMINOPH W/CODEINE #3 TAB UD PO PRN ×3 (11:10→23:17)
[2020-08-12] MEDS: PANTOPRAZOLE 40MG VIAL (C9113 PER 1) IV SCH (12:58)
[2020-08-12 14:00] VITALS: BP 123/80
--- NOTE | 2020-08-12 15:55 | IPNPDOC ---
Text Note Date of Service The patient was seen on 08/12/20. NOTE Hospitalist Progress Note Subjective: Patient reports that his pain is significantly improved today, his last dose of narcotics was at approximately midnight. He did tolerate his clear liquids for breakfast this morning, will advance to soft diet for lunch. Otherwise, he does not have any other acute complaints today, and the remainder of his review of systems is negative. Objective: General: Awake, alert, oriented 3. He is in no acute distress. HEENT: Head normocephalic, atraumatic, sclera are nonicteric. Hearing is grossly intact to conversation. Respiratory: Clear to auscultation bilaterally with no wheezes, rales, or rhonc hi. Cardiovascular: Regular rate and rhythm, with no rubs, gallops, or murmur. Abdomen: Soft, still somewhat tender to deep palpation, nondistended, no hepatosplenomegaly appreciated. Bowel sounds present. Extremities: 2+ pulses in the radial and dorsalis pedis bilaterally. No evidence of clubbing or cyanosis. Assessment/Plan: -Acute pancreatitis (second episode) Advance diet as tolerated. Pain is significantly improved today: Discontinue Dilaudid and oxycodone, continue with Tylenol with codeine. Continue IV fluids, as needed Zofran. Will discontinue IV Protonix, and switch him over to oral omeprazole a lower dose, he typically does not take a PPI at home. -SIRS secondary to acute pancreatitis Resolved -Ileus Good bowel sounds today, less pain with oral intake. Clinically improving. -Hypoxia Only on 1 L this morning, will continue to wean him off. He is not on oxygen at home. -Hypocalcemia Replaced -Hypomagnesemia Replaced -Hypokalemia Replaced -Hypertension Continue home dose of lisinopril -Hyperlipidemia Hold statin -Thrombocytopenia Now resolved -DVT prophylaxis Teds and sequentials VS,Fishbone, I+O VS, Fishbone, I+O Laboratory Tests 08/12/20 06:16 08/12/20 06:17 Vital Signs Date Time Temp Pulse Resp B/P (MAP) Pulse Ox O2 Delivery O2 Flow Rate FiO2 08/12/20 14:00 99.5 117 16 123/80 (94) 98 Room Air 08/12/20 06:00 2.0 I&O- Last 24 Hours up to 6 AM 08/12/20 06:00 Intake Total 1020 ml Output Total 600 ml Balance 420 ml BIJAN TRACY DO Aug 12, 2020 15:55
[2020-08-12] MEDS: lisinopriL 40 MG TAB PO SCH (20:08)
[2020-08-12 22:00] VITALS: BP 152/88
[2020-08-13] MEDS: KCL 40MEQ IN D5/NS 1000ML 1,000 ML IV SCH (02:53)
[2020-08-13] MEDS: SLF 3 ML SYR IV SCH (05:02)
[2020-08-13 06:00] VITALS: BP 152/89
[2020-08-13] MEDS: ACETAMINOPH W/CODEINE #3 TAB UD PO PRN (06:10)
[2020-08-13 06:24] LABS: BASO % 0.3 % (0.0-1.0); EOS # 0.1 10^3/uL (0.0-0.5); EOS % 0.7 % (0.0-3.0); HEMOGLOBIN 9.6 g/dl (13.5-17.5); LYMPH # 1.3 10^3/uL (1.5-5.0); LYMPH % 11.3 % (24.0-44.0); MEAN CORPUSCULAR HGB CONC 33.1 g/dl (32.0-36.5); MEAN CORPUSCULAR VOLUME 93.5 fl (80.0-96.0); MONO # 1.3 10^3/uL (0.0-0.8); MONO % 11.9 % (0.0-5.0); NEUTROPHILS % 71.3 % (36.0-66.0); PLATELET COUNT, AUTOMATED 207 10^3/uL (150-450); WHITE BLOOD COUNT 11.2 10^3/uL (4.0-10.0)
[2020-08-13 06:34] LABS: BLOOD UREA NITROGEN 7 MG/DL (7-18); CALCIUM LEVEL 8.2 MG/DL (8.5-10.1); CARBON DIOXIDE LEVEL 23 MEQ/L (21-32); CHLORIDE LEVEL 105 MEQ/L (98-107); CREATININE FOR GFR 0.68 MG/DL (0.70-1.30); GLOMERULAR FILTRATION RATE > 60.0 (>56); GLUCOSE, FASTING 158 MG/DL (70-100); LIPASE 286 U/L (73-393); POTASSIUM SERUM 3.7 MEQ/L (3.5-5.1); SODIUM LEVEL 135 MEQ/L (136-145)
[2020-08-13] MEDS ORDERED: OMEPRAZOLE 20 MG CAP PO SCH (09:00)
[2020-08-13] MEDS ORDERED: ACET1TAB16 PO (10:19)
--- NOTE | 2020-08-13 18:22 | DS.PDOC ---
Discharge Summary General Date of Admission Aug 07, 2020 at 12:20 Date of Discharge 08/13/2020 Discharge Summary PRIMARY CARE PHYSICIAN: Bree SpragueO. ATTENDING AT TIME OF DISCHARGE: Dr. Bijan Tracy, DISCHARGE DIAGNOS(E)S: Acute pancreatitis Surgeries Ileus Hypoxia Hypocalcemia Hypomagnesemia Hypokalemia Hypertension Hyperlipidemia Thrombocytopenia HPI & HOSPITAL COURSE: The patient presented to the emergency department with significant abdominal pain. He states that he was out working hard, perhaps little dehydrated, and in lieu of drinking water had a few beers instead, and suspects that this may have precipitated his episode. CT abdomen and pelvis showed significant peripancreatic and generalized upper abdominal mesenteric/retroperitoneal inflammatory stranding along with a small amount of ascites which is most compat ible with acute pancreatitis, also had a lipase of greater than 14,000 upon admission. No gallstones seen, no CBD dilation, triglycerides normal. Patient treated with aggressive IV fluids and pain medication. Hospitalization was complicated and perhaps prolonged due to ileus as well. He did have an episode of thrombocytopenia therefore Lovenox was discontinued, and this returned to normal without intervention. Otherwise, electrolytes were replaced on an as- needed basis. His pain slowly improved, and he is now tolerating a soft diet without much issue. He appears to be ready and safe for discharge at this time. PHYSICAL EXAMINATION ON DISCHARGE: GENERAL: Awake, alert, oriented 3. He is in no acute distress. CARDIOVASCULAR EXAMINATION: Regular rate and rhythm, with no rubs, gallops, or murmur. RESPIRATORY EXAMINATION: Clear to auscultation bilaterally with no wheezes, rales, or rhonchi. ABDOMINAL EXAMINATION: Soft, minimally tender with deep palpation, nondistended. Bowel sounds present. No guarding or rigidity. EXTREMITIES: No clubbing or edema noted. 2+ pulses in the radial bilaterally. DISPOSITION: Home DISCHARGE INSTRUCTIONS: Follow-up with primary care provider within the next 7-14 days. Recommend low- fat, low residue diet to begin with, and then slowly returned to normal diet. Activity as tolerated.. If symptoms return, or if you experience worsening of your symptoms, please call your doctor or return to the emergency department. Vital Signs/I&Os Vital Signs Date Time Temp Pulse Resp B/P (MAP) Pulse Ox O2 Delivery O2 Flow Rate FiO2 08/13/20 06:40 16 Room Air 08/13/20 06:00 98.6 85 152/89 (110) 95 08/12/20 06:00 2.0 I&O- Last 24 Hours up to 6 AM 08/13/20 06:00 Intake Total 3100 ml Output Total 3050 ml Balance 50 ml Laboratory Data Labs 24H Laboratory Tests 2 08/13/20 05:34: Immature Granulocyte % (Auto) 4.5H, Neutrophils (%) (Auto) 71.3H, Lymphocytes (%) (Auto) 11.3L, Monocytes (%) (Auto) 11.9H, Eosinophils (%) (Auto) 0.7, Basophils (%) (Auto) 0.3, Neutrophils # (Auto) 8.0, Lymphocytes # (Auto) 1.3L, Monocytes # (Auto) 1.3H, Eosinophils # (Auto) 0.1, Basophils # (Auto) 0.0, Nucleated Red Blood Cells % (auto) 0.0, Anion Gap 7L, Glomerular Filtration Rate > 60.0, Calcium Level 8.2L, Lipase 286 CBC/BMP Laboratory Tests 08/13/20 05:34 Discharge Medications Scheduled Ascorbic Acid (Vitamin C) 250 Mg Tablet, 250 MG PO QHS, (Reported) Aspirin (Aspirin EC) 81 Mg Tablet.dr, 81 MG PO QHS, (Reported) Atorvastatin Calcium (Atorvastatin Calcium) 80 Mg Tablet, 80 MG PO QHS, (Reported) Cholecalciferol (Vitamin D3) (Vitamin D3) 1,000 Unit Tablet, 1,000 UNITS PO QHS, (Reported) Cyclosporine (Restasis) 0.05% Droperette, 1 DROP OU BID, (Reported) Lisinopril (Lisinopril) 40 Mg Tablet, 40 MG PO QHS, (Reported) Scheduled PRN Acetaminophen with Codeine (Acetaminophen-Cod #3 Tablet) 1 Each Tablet, 1 EA PO Q8HP PRN for MODERATE BREAKTHROUGH PAIN Allergies Coded Allergies: No Known Drug Allergies (Verified Allergy, Unknown, UNKNOWN ANTIBIOTIC CAUSED PANCREATITIS YEARS AGO PER PATIENT, 08/09/20) BIJAN TRACY DO Aug 13, 2020 18:22
== END 2020-08-13 11:55 | disposition home or self-care (01) | DRG 282 ==
LOC: M ED 10:30 → M ED INP 12:20 → M MS5PR 14:15 → M PCU 08-08 07:45 → M MSPAV 08-12 01:32
PROVIDERS: ADMIT Internal Medicine Nephrology; ATTEND Neuromusculoskeletal Medicine & OMM
DX: K85.90 Acute pancreatitis without necrosis or infection, unspecified (principal); D69.6 Thrombocytopenia, unspecified; E83.42 Hypomagnesemia; E83.51 Hypocalcemia; K56.7 Ileus, unspecified; I10 Essential (primary) hypertension; E87.6 Hypokalemia; E78.5 Hyperlipidemia, unspecified; Z79.82 Long term (current) use of aspirin; Z79.899 Other long term (current) drug therapy; I25.10 Atherosclerotic heart disease of native coronary artery without angina pectoris; I25.2 Old myocardial infarction

== ENCOUNTER 2021-04-08 18:50 | Emergency (ER) | payer MEDICAID, OTHER, SELFPAY ==
[~2021-04-08] VITALS: Ht 172.7 cm; Wt 75.0 kg
[~2021-04-08 18:50] MED LIST: ACET1TAB16 PO; ASPI-161 PO; ATOR80TA59 PO; C-251TAB PO; D31000TA2 PO; LISI40TA4 PO; REST0.05 OU
[2021-04-08 18:52] VITALS: BP 159/87
[2021-04-08] MEDS ORDERED: AMLO25TA PO (19:01)
--- NOTE | 2021-04-08 19:59 | REP ---
INDICATION: TRAUMA COMPARISON: None. TECHNIQUE: AP, lateral, bilateral oblique views left 1st through 5th phalanges. FINDINGS: The osseous structures and joint spaces are intact and normal. There is no evidence for acute fracture or dislocation. No subcutaneous emphysema or radiodense foreign body. IMPRESSION: No acute fracture or dislocation. <Electronically signed by Alvin Mohamud > 04/08/211954
== END 2021-04-08 21:30 | disposition left against medical advice (07) ==
LOC: M ED 18:50
DX: Z53.21 Procedure and treatment not carried out due to patient leaving prior to being seen by health care provider (principal)

== ENCOUNTER → 2021-06-22 | Outpatient (CLI) | payer OTHER ==
[~2021-06-22] MED LIST changes: +AMLO25TA PO
--- NOTE | 2021-06-22 11:57 | REP ---
INDICATION: EVAL FOR RECURRENT LEFT HERNIA. COMPARISON: None. TECHNIQUE: Real-time sonographic evaluation of the left inguinal region. FINDINGS: No abnormalities are noted. IMPRESSION: Unremarkable exam <Electronically signed by Damaso Cummins > 06/22/21 [id number]
== END ==
LOC: M RAD 11:16
PROVIDERS: ATTEND Surgery
DX: S76.012A Strain of muscle, fascia and tendon of left hip, initial encounter (principal); X58.XXXA Exposure to other specified factors, initial encounter; Y92.9 Unspecified place or not applicable

== ENCOUNTER → 2021-08-22 | Outpatient (CLI) | payer BC ==
[2021-08-22 14:04] LABS: HEMATOCRIT 43.6 % (42.0-52.0); HEMOGLOBIN 14.7 g/dl (13.5-17.5); MEAN CORPUSCULAR HEMOGLOBIN 32.3 pg (27.0-33.0); MEAN CORPUSCULAR HGB CONC 33.7 g/dl (32.0-36.5); MEAN CORPUSCULAR VOLUME 95.8 fl (80.0-96.0); PLATELET COUNT, AUTOMATED 249 10^3/uL (150-450); RED BLOOD COUNT 4.55 10^6/uL (4.30-6.10); WHITE BLOOD COUNT 7.5 10^3/uL (4.0-10.0)
[2021-08-22 15:04] LABS: ALBUMIN 3.9 GM/DL (3.2-5.2); ALT/SGPT 27 U/L (12-78); BILIRUBIN,TOTAL 0.5 MG/DL (0.2-1.0); BLOOD UREA NITROGEN 9 MG/DL (7-18); CALCIUM LEVEL 9.2 MG/DL (8.5-10.1); CARBON DIOXIDE LEVEL 23 MEQ/L (21-32); CHLORIDE LEVEL 103 MEQ/L (98-107); CHOLESTEROL LEVEL 141 MG/DL (<200); CHOLESTEROL RISK RATIO 4.147 (<5); CPK CREATINE PHOSPHOKINASE 174 U/L (39-308); CREATININE FOR GFR 0.88 MG/DL (0.70-1.30); GLOMERULAR FILTRATION RATE > 60.0 (>56); GLUCOSE, FASTING 128 MG/DL (70-100); HDL CHOLESTEROL 34 MG/DL (>40); LDL CHOLESTEROL 63 MG/DL (<100); NON-HDL-C 107 MG/DL; POTASSIUM SERUM 4.8 MEQ/L (3.5-5.1); SODIUM LEVEL 136 MEQ/L (136-145); TOTAL PROTEIN 6.9 GM/DL (6.4-8.2); TRIGLYCERIDES LEVEL 220 MG/DL (<150)
== END ==
LOC: M PLALAB 09:22
PROVIDERS: ATTEND Physician Assistant Medical
DX: Z12.5 Encounter for screening for malignant neoplasm of prostate (principal); E78.00 Pure hypercholesterolemia, unspecified; K86.1 Other chronic pancreatitis
CPT/HCPCS: 36415; 80053; 80061; 82550; 83525; 85027; G0103

== ENCOUNTER → 2021-08-23 | Outpatient (CLI) | payer BC ==
--- NOTE | 2021-08-23 13:37 | REP ---
INDICATION: FLANK PAIN, STONE PROTOCOL. COMPARISON: 08/07/2020 CT with contrast. TECHNIQUE: Noncontrast scanning through the abdomen and pelvis with coronal and sagittal reconstructions. FINDINGS: CT abdomen: Lung bases are clear without infiltrate, effusion or atelectasis. The heart is not enlarged there is no pericardial thickening or effusion no hiatal hernia. Liver, spleen, gallbladder, adrenal glands and stomach are grossly unremarkable. Pancreas has a dilated pancreatic duct and pancreatic pseudocyst at its tail measuring 4.4 x 4.4 x 3.9 cm. The extensive peripancreatic edema and fluid on the CT 1 year ago is resolved. There are couple of calcifications in the region of the pancreatic tail which may be related to his prior pancreatitis there also some in the pancreatic head region. No calcified gallstone in the gallbladder or kayla hepatis. Duodenum unremarkable. No inflammatory changes in the peripancreatic region the aorta has atherosclerotic calcifications without aneurysm. No pathologic sized periaortic, other retroperitoneal or mesenteric lymphadenopathy. There is an accessory left renal vein which has a retroaortic course along with a normal preaortic left main renal vein. The kidneys show no stone, mass, hydronephrosis, cyst or perinephric fluid see no hydroureter or ureteral stone on either side. Small bowel loops grossly intact. The colon shows scattered stool and gas without signs of colitis or diverticulitis. Cecum unremarkable and appendix normal. Some mild interposed small bowel loops between the anterior margin of the liver and the abdominal/chest wall. No ascites in the abdomen. I see no perforation or free air in the abdomen and pelvis on lung window review of all CT slices. Bone windows show marginal osteophytes lumbar and lower thoracic spines without destructive lesion or compression deformity. Some facet arthropathy noted. Visualized ribs intact. CT pelvis: The sacrum, SI joints, pelvis and hips do show degenerative changes without destructive lesion or fracture small bowel loops are normal caliber distal left colon, sigmoid and rectum grossly intact. There is no ascites in the pelvis on current study no ventral or inguinal hernia nor pathologic sized inguinal adenopathy. Iliac and femoral vessels with atherosclerotic calcifications but no aneurysm. Bladder without mass, wall thickening or stone. No dilated distal ureter or stone ureteral stone seen. IMPRESSION: 1. Clearing of the peripancreatic edema the inflammatory change and fluid since the study from 1 year ago. However, there is a 4.4 cm pancreatic pseudocyst at the tail the pancreas is a new finding in its entirety. 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 It has a few calcifications 1 margin. Pancreatic duct is mildly prominent but no other findings, peripancreatic pathologic size nodes or edema. 2. Liver, spleen, gallbladder, adrenal glands and kidneys without acute finding. Specifically there is no renal, ureteral or bladder stone, hydronephrosis or mass involving those organs. 3. Colon, small bowel loops, stomach and bony structures grossly intact without acute finding. <Electronically signed by Fernando Chávez > 08/23/21 [id number]
== END ==
LOC: M RAD 12:52
PROVIDERS: ATTEND Physician Assistant Medical
DX: K86.3 Pseudocyst of pancreas (principal); R10.9 Unspecified abdominal pain

== ENCOUNTER → 2021-08-23 | Outpatient (REF) | payer BC ==
[2021-08-23 13:42] LABS: APPEARANCE, URINE CLEAR (CLEAR); BACTERIA, URINE AUTO NEGATIVE (NEGATIVE); BILIRUBIN, URINE AUTO NEGATIVE (NEGATIVE); BLOOD, URINE BLOOD NEGATIVE (NEGATIVE); COLOR, URINE YELLOW (YELLOW); GLUCOSE, URINE (UA) AUTO NEGATIVE (NEGATIVE); KETONE, URINE AUTO NEGATIVE (NEGATIVE); LEUKOCYTE ESTERASE, URINE AUTO NEGATIVE (NEGATIVE); MUCUS, URINE SMALL (NEGATIVE); NITRITE, URINE AUTO NEGATIVE (NEGATIVE); PROTEIN, URINE AUTO NEGATIVE (NEGATIVE); RBC, URINE AUTO 1 /HPF (0-3); SPECIFIC GRAVITY URINE AUTO 1.009 (1.002-1.035); SQUAMOUS EPITHELIAL CELL UR AU 0 /HPF (0-6); UROBILINOGEN, URINE AUTO 0.2 mg/dL (0.0-2.0); WBC, URINE AUTO 0 /HPF (0-3)
== END ==
LOC: M SFHCPLAZ 12:51
PROVIDERS: ATTEND Physician Assistant Medical
DX: R31.0 Gross hematuria (principal)

== ENCOUNTER → 2021-09-05 | Outpatient (REF) | payer BC, OTHER ==
[2021-09-05 18:04] LABS: APPEARANCE, URINE CLEAR (CLEAR); BACTERIA, URINE AUTO NEGATIVE (NEGATIVE); BILIRUBIN, URINE AUTO NEGATIVE (NEGATIVE); BLOOD, URINE BLOOD NEGATIVE (NEGATIVE); COLOR, URINE YELLOW (YELLOW); GLUCOSE, URINE (UA) AUTO 1+ mg/dL (NEGATIVE); KETONE, URINE AUTO NEGATIVE (NEGATIVE); LEUKOCYTE ESTERASE, URINE AUTO NEGATIVE (NEGATIVE); NITRITE, URINE AUTO NEGATIVE (NEGATIVE); PROTEIN, URINE AUTO NEGATIVE (NEGATIVE); RBC, URINE AUTO 1 /HPF (0-3); SQUAMOUS EPITHELIAL CELL UR AU 0 /HPF (0-6); UROBILINOGEN, URINE AUTO 0.2 mg/dL (0.0-2.0); WBC, URINE AUTO 0 /HPF (0-3)
== END ==
LOC: M SMT 16:50
PROVIDERS: ATTEND Urology
DX: R10.32 Left lower quadrant pain (principal)

== ENCOUNTER → 2021-09-11 | Outpatient (CLI) | payer BC, OTHER ==
[~2021-09-11] MED LIST changes: +AMIT10TA7 PO; +AMLO1TAB24 PO; +CREO3000 PO; +ONDA4INJ4 IV; +TRAM50TA2 PO
[2021-09-11 10:39] LABS: APPEARANCE, URINE CLEAR (CLEAR); BACTERIA, URINE AUTO NEGATIVE (NEGATIVE); BILIRUBIN, URINE AUTO NEGATIVE (NEGATIVE); BLOOD, URINE BLOOD NEGATIVE (NEGATIVE); COLOR, URINE YELLOW (YELLOW); GLUCOSE, URINE (UA) AUTO NEGATIVE (NEGATIVE); KETONE, URINE AUTO NEGATIVE (NEGATIVE); LEUKOCYTE ESTERASE, URINE AUTO NEGATIVE (NEGATIVE); NITRITE, URINE AUTO NEGATIVE (NEGATIVE); PROTEIN, URINE AUTO NEGATIVE (NEGATIVE); RBC, URINE AUTO 2 /HPF (0-3); SPECIFIC GRAVITY URINE AUTO 1.014 (1.002-1.035); SQUAMOUS EPITHELIAL CELL UR AU 0 /HPF (0-6); UROBILINOGEN, URINE AUTO 0.2 mg/dL (0.0-2.0); WBC, URINE AUTO 1 /HPF (0-3)
[2021-09-11 11:07] LABS: BLOOD UREA NITROGEN 8 MG/DL (7-18); CALCIUM LEVEL 9.2 MG/DL (8.5-10.1); CARBON DIOXIDE LEVEL 26 MEQ/L (21-32); CHLORIDE LEVEL 109 MEQ/L (98-107); CREATININE FOR GFR 0.78 MG/DL (0.70-1.30); GLOMERULAR FILTRATION RATE > 60.0 (>56); GLUCOSE, FASTING 135 MG/DL (70-100); POTASSIUM SERUM 4.5 MEQ/L (3.5-5.1); SODIUM LEVEL 139 MEQ/L (136-145)
== END ==
LOC: M PLALAB 09:10
PROVIDERS: ATTEND Urology
DX: R10.32 Left lower quadrant pain (principal)

== ENCOUNTER → 2021-09-20 | Outpatient (CLI) | payer BC ==
[~2021-09-20] MED LIST changes: -AMIT10TA7 PO; -AMLO1TAB24 PO; -CREO3000 PO; -ONDA4INJ4 IV; -TRAM50TA2 PO
[2021-09-20 15:47] LABS: BASO # 0.1 10^3/uL (0.0-0.2); BASO % 0.6 % (0.0-1.0); EOS # 0.2 10^3/uL (0.0-0.5); EOS % 1.8 % (0.0-3.0); HEMATOCRIT 46.3 % (42.0-52.0); HEMOGLOBIN 15.3 g/dl (13.5-17.5); LYMPH # 2.7 10^3/uL (1.5-5.0); LYMPH % 25.3 % (24.0-44.0); MEAN CORPUSCULAR HEMOGLOBIN 31.6 pg (27.0-33.0); MEAN CORPUSCULAR VOLUME 95.7 fl (80.0-96.0); MONO # 0.7 10^3/uL (0.0-0.8); MONO % 6.9 % (2.0-8.0); NEUTROPHILS # 6.9 10^3/uL (1.5-8.5); NEUTROPHILS % 64.8 % (36.0-66.0); PLATELET COUNT, AUTOMATED 254 10^3/uL (150-450); RED BLOOD COUNT 4.84 10^6/uL (4.30-6.10); WHITE BLOOD COUNT 10.6 10^3/uL (4.0-10.0)
[2021-09-20 16:09] LABS: ALBUMIN 3.9 GM/DL (3.2-5.2); ALT/SGPT 24 U/L (12-78); BILIRUBIN,TOTAL 0.4 MG/DL (0.2-1.0); BLOOD UREA NITROGEN 6 MG/DL (7-18); CALCIUM LEVEL 9.4 MG/DL (8.5-10.1); CARBON DIOXIDE LEVEL 27 MEQ/L (21-32); CHLORIDE LEVEL 105 MEQ/L (98-107); CREATININE FOR GFR 0.83 MG/DL (0.70-1.30); FERRITIN 62 NG/ML (26-388); GLOMERULAR FILTRATION RATE > 60.0 (>56); GLUCOSE, FASTING 116 MG/DL (70-100); IRON (FE) 53 UG/DL (65-175); LIPASE 8658 U/L (73-393); POTASSIUM SERUM 4.4 MEQ/L (3.5-5.1); SODIUM LEVEL 138 MEQ/L (136-145); TOTAL PROTEIN 7.4 GM/DL (6.4-8.2)
== END ==
LOC: M PLALAB 12:22
PROVIDERS: ATTEND Physician Assistant Medical
DX: K86.1 Other chronic pancreatitis (principal)

== ENCOUNTER → 2021-09-27 | Outpatient (CLI) | payer BC ==
[~2021-09-27] MED LIST changes: +ISOVUE-370 76% 100ML VIAL As Ordered ONE
--- NOTE | 2021-09-27 10:56 | REP ---
INDICATION: LT GROIN PAIN. COMPARISON: 08/23/2021 and 08/07/2020 TECHNIQUE: Standard helical technique after the intravenous administration of 100 cc Isovue 370. FINDINGS: The lung bases are clear. The liver, gallbladder, spleen, adrenal glands, and kidneys are essentially unchanged and again seen to be within normal limits. The pancreatic pseudocyst seen on the prior exam of 08/23/2021 has increased in size today measuring 5.5 x 5.1 x 5.4 cm. Previously 4.4 cm in its greatest dimension. The degree of intrapancreatic ductal dilatation might have also increased since the latest prior, however, the latest prior is a noncontrast enhanced examination which images the pancreatic duct in a limited fashion. The maximal duct dimension today is 10.4 mm and previously estimated at 9 mm. Chronic pancreatic calcifications are again noted status quo. The abdominal aorta and para-aortic regions appear stable. No adenopathy has developed. There is no significant change in appearance of the bowel loops or the mesenteries. There is no free fluid or free air. There is no evidence of a new mass or adenopathy. Postoperative changes are seen in the left inguinal region from previous herniorrhaphy. There is no evidence of a recurrent hernia. Bone window technique throughout the exam shows no significant change in appearance of the osseous structures. IMPRESSION: Enlarging suspected pancreatic pseudocyst with other findings involving the pancreas as described above. Continued surveillance is suggested. Consider pre and post gadolinium enhanced pancreatic MRI. <Electronically signed by Damaso Cummins > 09/27/21 [id number]
== END ==
LOC: M RAD 10:15
PROVIDERS: ATTEND Urology
DX: K86.2 Cyst of pancreas (principal)
CPT/HCPCS: 74177; Q9967

== ENCOUNTER → 2021-10-03 | Outpatient (CLI) | payer BC ==
[~2021-10-03] MED LIST changes: -ISOVUE-370 76% 100ML VIAL As Ordered ONE
[2021-10-03 15:20] LABS: BASO % 0.4 % (0.0-1.0); EOS # 0.1 10^3/uL (0.0-0.5); HEMATOCRIT 43.7 % (42.0-52.0); HEMOGLOBIN 14.6 g/dl (13.5-17.5); LYMPH # 2.6 10^3/uL (1.5-5.0); LYMPH % 24.8 % (24.0-44.0); MEAN CORPUSCULAR HEMOGLOBIN 31.9 pg (27.0-33.0); MEAN CORPUSCULAR HGB CONC 33.4 g/dl (32.0-36.5); MEAN CORPUSCULAR VOLUME 95.4 fl (80.0-96.0); MONO # 0.8 10^3/uL (0.0-0.8); MONO % 7.6 % (2.0-8.0); NEUTROPHILS # 6.9 10^3/uL (1.5-8.5); NEUTROPHILS % 65.6 % (36.0-66.0); PLATELET COUNT, AUTOMATED 247 10^3/uL (150-450); RED BLOOD COUNT 4.58 10^6/uL (4.30-6.10); WHITE BLOOD COUNT 10.5 10^3/uL (4.0-10.0)
[2021-10-03 15:52] LABS: ERYTHROCYTE SEDIMENTATION RATE 6 mm/hr (0-20)
[2021-10-03 15:54] LABS: ALT/SGPT 27 U/L (12-78); BILIRUBIN,TOTAL 0.3 MG/DL (0.2-1.0); BLOOD UREA NITROGEN 13 MG/DL (7-18); CALCIUM LEVEL 8.9 MG/DL (8.5-10.1); CARBON DIOXIDE LEVEL 26 MEQ/L (21-32); CHLORIDE LEVEL 105 MEQ/L (98-107); CREATININE FOR GFR 0.94 MG/DL (0.70-1.30); GLOMERULAR FILTRATION RATE > 60.0 (>56); GLUCOSE, FASTING 194 MG/DL (70-100); LIPASE 2181 U/L (73-393); POTASSIUM SERUM 4.3 MEQ/L (3.5-5.1); SODIUM LEVEL 136 MEQ/L (136-145); TOTAL PROTEIN 6.9 GM/DL (6.4-8.2)
== END ==
LOC: M PLALAB 13:14
PROVIDERS: ATTEND Physician Assistant Medical
DX: K86.1 Other chronic pancreatitis (principal); Z12.5 Encounter for screening for malignant neoplasm of prostate

== ENCOUNTER → 2021-10-10 | Outpatient (CLI) | payer BC ==
[2021-10-10 13:32] LABS: BASO # 0.1 10^3/uL (0.0-0.2); BASO % 0.5 % (0.0-1.0); EOS # 0.2 10^3/uL (0.0-0.5); EOS % 2.1 % (0.0-3.0); HEMATOCRIT 43.2 % (42.0-52.0); HEMOGLOBIN 14.3 g/dl (13.5-17.5); LYMPH # 2.6 10^3/uL (1.5-5.0); LYMPH % 25.6 % (24.0-44.0); MEAN CORPUSCULAR HEMOGLOBIN 31.8 pg (27.0-33.0); MEAN CORPUSCULAR HGB CONC 33.1 g/dl (32.0-36.5); MEAN CORPUSCULAR VOLUME 96.2 fl (80.0-96.0); MONO # 0.7 10^3/uL (0.0-0.8); MONO % 6.5 % (2.0-8.0); NEUTROPHILS # 6.5 10^3/uL (1.5-8.5); NEUTROPHILS % 64.8 % (36.0-66.0); PLATELET COUNT, AUTOMATED 257 10^3/uL (150-450); RED BLOOD COUNT 4.49 10^6/uL (4.30-6.10)
== END ==
LOC: M PLALAB 11:31
PROVIDERS: ATTEND Physician Assistant Medical
DX: K86.1 Other chronic pancreatitis (principal)

== ENCOUNTER → 2021-11-28 | Outpatient (CLI) | payer BC ==
[~2021-11-28] MED LIST changes: +GASTROGRAFIN SOLUTION 30ML (Q9963) As Ordered ONE; +ISOVUE-370 76% 100ML VIAL As Ordered ONE
== END ==
LOC: M RAD 12:10
PROVIDERS: ATTEND Nurse Practitioner Family
DX: K86.2 Cyst of pancreas (principal)
CPT/HCPCS: 74177; Q9963; Q9967

== ENCOUNTER → 2021-12-05 | Outpatient (CLI) | payer BC ==
[~2021-12-05] MED LIST changes: +AMIT10TA7 PO; +AMLO1TAB24 PO; +CREO3000 PO; -GASTROGRAFIN SOLUTION 30ML (Q9963) As Ordered ONE; -ISOVUE-370 76% 100ML VIAL As Ordered ONE; +ONDA4INJ4 IV; +TRAM50TA2 PO
[2021-12-05 18:20] LABS: BASO % 0.4 % (0.0-1.0); EOS # 0.1 10^3/uL (0.0-0.5); EOS % 1.1 % (0.0-3.0); HEMATOCRIT 43.8 % (42.0-52.0); HEMOGLOBIN 14.6 g/dl (13.5-17.5); LYMPH # 2.1 10^3/uL (1.5-5.0); MEAN CORPUSCULAR HEMOGLOBIN 30.7 pg (27.0-33.0); MEAN CORPUSCULAR HGB CONC 33.3 g/dl (32.0-36.5); MEAN CORPUSCULAR VOLUME 92.2 fl (80.0-96.0); MONO # 0.8 10^3/uL (0.0-0.8); MONO % 8.1 % (2.0-8.0); NEUTROPHILS # 6.4 10^3/uL (1.5-8.5); NEUTROPHILS % 67.7 % (36.0-66.0); PLATELET COUNT, AUTOMATED 224 10^3/uL (150-450); RED BLOOD COUNT 4.75 10^6/uL (4.30-6.10); WHITE BLOOD COUNT 9.4 10^3/uL (4.0-10.0)
[2021-12-05 19:32] LABS: FERRITIN 234 NG/ML (26-388); IRON (FE) 47 UG/DL (65-175); LIPASE 1757 U/L (73-393)
== END ==
LOC: M PLALAB 15:18
PROVIDERS: ATTEND Physician Assistant Medical
DX: D50.0 Iron deficiency anemia secondary to blood loss (chronic) (principal); K86.1 Other chronic pancreatitis

== ENCOUNTER → 2021-12-06 | Outpatient (REF) | payer BC | LOC: M SFHCPLAZ 15:05 | PROVIDERS: ATTEND Physician Assistant Medical | DX: D50.0 Iron deficiency anemia secondary to blood loss (chronic) (principal) ==

== ENCOUNTER 2021-12-08 14:28 | Observation (INO) | payer BC, MEDICAID ==
[~2021-12-08] VITALS: Ht 172.7 cm; Wt 64.8 kg
[~2021-12-08 14:28] MED LIST changes: -AMIT10TA7 PO; -AMLO1TAB24 PO; -CREO3000 PO; -D31000TA2 PO; -ONDA4INJ4 IV; -TRAM50TA2 PO; +VITA100093 PO
[2021-12-08] MEDS ORDERED: CREO3000 PO (14:54)
[2021-12-08] MEDS ORDERED: AMLO1TAB24 PO (14:54)
[2021-12-08 16:09] LABS: BASO % 0.4 % (0.0-1.0); EOS % 0.5 % (0.0-3.0); HEMOGLOBIN 14.6 g/dl (13.5-17.5); LYMPH # 1.9 10^3/uL (1.5-5.0); MEAN CORPUSCULAR HEMOGLOBIN 30.7 pg (27.0-33.0); MEAN CORPUSCULAR VOLUME 90.3 fl (80.0-96.0); MONO # 0.5 10^3/uL (0.0-0.8); MONO % 6.5 % (2.0-8.0); NEUTROPHILS # 5.8 10^3/uL (1.5-8.5); PLATELET COUNT, AUTOMATED 213 10^3/uL (150-450); RED BLOOD COUNT 4.76 10^6/uL (4.30-6.10); WHITE BLOOD COUNT 8.4 10^3/uL (4.0-10.0)
[2021-12-08] MEDS ORDERED: ONDANSETRON 4MG/2ML VIAL IV ONE (16:25)
[2021-12-08] MEDS ORDERED: MORPHINE 4 MG/ML 1ML VIAL/SYRINGE (J2270) IV ONE ×2 (16:25→20:50)
[2021-12-08] MEDS ORDERED: NS 1,000 ML IV ONE (16:25)
[2021-12-08 16:51] LABS: ALBUMIN 3.8 GM/DL (3.2-5.2); ALT/SGPT 297 U/L (12-78); BILIRUBIN,DIRECT 1.7 MG/DL (0.0-0.2); BILIRUBIN,TOTAL 2.4 MG/DL (0.2-1.0); BLOOD UREA NITROGEN 9 MG/DL (7-18); CALCIUM LEVEL 9.7 MG/DL (8.5-10.1); CARBON DIOXIDE LEVEL 26 MEQ/L (21-32); CHLORIDE LEVEL 100 MEQ/L (98-107); GLOMERULAR FILTRATION RATE > 60.0 (>56); GLUCOSE, FASTING 374 MG/DL (70-100); POTASSIUM SERUM 4.5 MEQ/L (3.5-5.1); SODIUM LEVEL 134 MEQ/L (136-145); TOTAL PROTEIN 7.3 GM/DL (6.4-8.2)
[2021-12-08 17:02] LABS: LIPASE 5016 U/L (73-393)
[2021-12-08 17:21] LABS: RSV AMPLIFICATION NEGATIVE (NEGATIVE)
[2021-12-08] MEDS ORDERED: ISOVUE-370 76% 100ML VIAL As Ordered ONE (17:25)
[2021-12-08] MEDS ORDERED: HumaLOG INSULIN (NovoLOG) PER UNIT SC SCH (21:00)
[2021-12-08] MEDS ORDERED: GLUCOSE 4GM CHEW TABLET PO PRN (22:25)
[2021-12-08] MEDS ORDERED: DEXTROSE 50% 50 ML SYRINGE IV PRN (22:25)
[2021-12-08] MEDS ORDERED: GLUCAGON INJ 1MG VIAL SC PRN (22:25)
[2021-12-08] MEDS ORDERED: HYDROMORPHONE HCL 0.5 MG/ 0.5 ML SYRINGE (J1170 PER 1) IV PRN (22:25)
[2021-12-08] MEDS ORDERED: ONDANSETRON 4MG/2ML VIAL IV PRN (23:40)
[2021-12-08] MEDS ORDERED: NS 1,000 ML IV SCH (23:45)
[2021-12-08] MEDS ORDERED: AMIT10TA7 PO (23:50)
[2021-12-08] MEDS ORDERED: REST0.05 OU (23:55)
[2021-12-08] MEDS ORDERED: TRAM50TA2 PO (23:55)
[2021-12-09] MEDS ORDERED: HOME MED LIST COMPLETE! XX SCH
[2021-12-09] MEDS: HYDROMORPHONE HCL 0.5 MG/ 0.5 ML SYRINGE (J1170 PER 1) IV PRN ×4 (01:07→13:33)
[2021-12-09] MEDS: METOPROLOL TART 12.5 MG PER 1/2 TAB PO SCH ×2 (01:13→08:52)
[2021-12-09 01:50] VITALS: BP 153/97
[2021-12-09 06:00] VITALS: BP 137/82
[2021-12-09] MEDS ORDERED: HEPARIN SOD (PORCINE) 5000UNITS/ML 1ML VIAL/SYRINGE SC SCH (06:00)
[2021-12-09 07:17] LABS: HEMOGLOBIN A1c 10.8 %
[2021-12-09] MEDS: HumaLOG INSULIN (NovoLOG) PER UNIT SC SCH ×2 (07:30→12:00)
[2021-12-09 07:36] LABS: ALBUMIN 3.1 GM/DL (3.2-5.2); ALT/SGPT 206 U/L (12-78); BILIRUBIN,TOTAL 1.1 MG/DL (0.2-1.0); BLOOD UREA NITROGEN 7 MG/DL (7-18); CALCIUM LEVEL 8.8 MG/DL (8.5-10.1); CARBON DIOXIDE LEVEL 21 MEQ/L (21-32); CHLORIDE LEVEL 106 MEQ/L (98-107); CREATININE FOR GFR 0.44 MG/DL (0.70-1.30); GLOMERULAR FILTRATION RATE > 60.0 (>56); GLUCOSE, FASTING 143 MG/DL (70-100); MAGNESIUM LEVEL 1.7 MG/DL (1.8-2.4); POTASSIUM SERUM 3.7 MEQ/L (3.5-5.1); SODIUM LEVEL 137 MEQ/L (136-145)
[2021-12-09] MEDS ORDERED: NS 1,000 ML IV SCH (07:40)
[2021-12-09 08:20] LABS: TRIGLYCERIDES LEVEL 151 MG/DL (<150)
[2021-12-09 08:52] VITALS: BP 137/82
[2021-12-09] MEDS ORDERED: ASPIRIN 300 MG SUPP PR SCH (09:00)
[2021-12-09] MEDS ORDERED: ONDA4INJ4 IV (12:07)
== END 2021-12-09 14:10 | disposition short-term general hospital (02) ==
LOC: M ED 14:28 → M ED INP 22:21 → ENRESERV 12-09 01:24 → M MS5PR 12-09 02:20
PROVIDERS: ADMIT Internal Medicine; ATTEND Internal Medicine
DX: K86.9 Disease of pancreas, unspecified (principal); K85.90 Acute pancreatitis without necrosis or infection, unspecified; R74.01 Elevation of levels of liver transaminase levels; I25.10 Atherosclerotic heart disease of native coronary artery without angina pectoris; I25.2 Old myocardial infarction; I10 Essential (primary) hypertension; E78.5 Hyperlipidemia, unspecified; Z79.82 Long term (current) use of aspirin; Z79.899 Other long term (current) drug therapy; F17.218 Nicotine dependence, cigarettes, with other nicotine-induced disorders
CPT/HCPCS: 36415; 74177; 80048; 80053; 80076; 82378; 83036; 83690; 83735; 84478; 85025; 86301; 87631; 96361; 96372; 96374; 96375; 96376; 99285; J1170; J1644; J2270; J2405; Q9967

== ENCOUNTER → 2021-12-18 | Outpatient (CLI) | payer OTHER ==
[~2021-12-18] MED LIST changes: +AMIT10TA7 PO; +AMLO1TAB24 PO; +CREO3000 PO; +ONDA4INJ4 IV; +PROHANCE 279.3MG/ML 15ML VIAL ONE; +TRAM50TA2 PO
== END ==
LOC: M PLAIMG 14:09
PROVIDERS: ATTEND Surgery
DX: S76.012A Strain of muscle, fascia and tendon of left hip, initial encounter (principal); X58.XXXA Exposure to other specified factors, initial encounter; Y92.89 Other specified places as the place of occurrence of the external cause; Y93.9 Activity, unspecified; Y99.9 Unspecified external cause status
CPT/HCPCS: 72197; A9576

== ENCOUNTER → 2021-12-22 | Outpatient (CLI) | payer MEDICAID ==
[~2021-12-22] MED LIST changes: -PROHANCE 279.3MG/ML 15ML VIAL ONE
[2021-12-22 13:50] LABS: BASO # 0.1 10^3/uL (0.0-0.2); BASO % 0.7 % (0.0-1.0); EOS # 0.1 10^3/uL (0.0-0.5); EOS % 1.6 % (0.0-3.0); HEMATOCRIT 44.7 % (42.0-52.0); HEMOGLOBIN 14.8 g/dl (13.5-17.5); LYMPH # 1.7 10^3/uL (1.5-5.0); LYMPH % 22.6 % (24.0-44.0); MEAN CORPUSCULAR HEMOGLOBIN 30.3 pg (27.0-33.0); MEAN CORPUSCULAR HGB CONC 33.1 g/dl (32.0-36.5); MEAN CORPUSCULAR VOLUME 91.6 fl (80.0-96.0); MONO # 0.7 10^3/uL (0.0-0.8); MONO % 9.7 % (2.0-8.0); PLATELET COUNT, AUTOMATED 208 10^3/uL (150-450); RED BLOOD COUNT 4.88 10^6/uL (4.30-6.10); WHITE BLOOD COUNT 7.6 10^3/uL (4.0-10.0)
[2021-12-22 14:24] LABS: ALBUMIN 4.1 GM/DL (3.2-5.2); ALT/SGPT 36 U/L (12-78); BILIRUBIN,TOTAL 0.8 MG/DL (0.2-1.0); BLOOD UREA NITROGEN 16 MG/DL (7-18); CALCIUM LEVEL 9.7 MG/DL (8.5-10.1); CARBON DIOXIDE LEVEL 25 MEQ/L (21-32); CHLORIDE LEVEL 101 MEQ/L (98-107); CREATININE FOR GFR 0.86 MG/DL (0.70-1.30); GLOMERULAR FILTRATION RATE > 60.0 (>56); GLUCOSE, FASTING 327 MG/DL (70-100); LIPASE 262 U/L (73-393); POTASSIUM SERUM 4.6 MEQ/L (3.5-5.1); SODIUM LEVEL 133 MEQ/L (136-145); TOTAL PROTEIN 7.6 GM/DL (6.4-8.2)
[2021-12-22 14:53] LABS: CA19-9 TUMOR MARKER,CARBOHYDRA 49.5 U/ML (<35.0)
[2021-12-22 15:06] LABS: HEMOGLOBIN A1c 11.3 %
== END ==
LOC: M PLALAB 10:21
PROVIDERS: ATTEND Physician Assistant Medical
DX: E11.22 Type 2 diabetes mellitus with diabetic chronic kidney disease (principal); N18.9 Chronic kidney disease, unspecified; K86.2 Cyst of pancreas; K85.90 Acute pancreatitis without necrosis or infection, unspecified

== ENCOUNTER → 2022-01-04 | Outpatient (CLI) | payer MEDICAID ==
[2022-01-04 17:40] LABS: BASO % 0.4 % (0.0-1.0); EOS # 0.1 10^3/uL (0.0-0.5); EOS % 1.4 % (0.0-3.0); HEMATOCRIT 35.8 % (42.0-52.0); HEMOGLOBIN 12.2 g/dl (13.5-17.5); LYMPH # 2.3 10^3/uL (1.5-5.0); LYMPH % 24.8 % (24.0-44.0); MEAN CORPUSCULAR HEMOGLOBIN 30.8 pg (27.0-33.0); MEAN CORPUSCULAR HGB CONC 34.1 g/dl (32.0-36.5); MEAN CORPUSCULAR VOLUME 90.4 fl (80.0-96.0); MONO # 0.5 10^3/uL (0.0-0.8); MONO % 5.4 % (2.0-8.0); NEUTROPHILS # 6.2 10^3/uL (1.5-8.5); NEUTROPHILS % 66.3 % (36.0-66.0); PLATELET COUNT, AUTOMATED 236 10^3/uL (150-450); RED BLOOD COUNT 3.96 10^6/uL (4.30-6.10); WHITE BLOOD COUNT 9.4 10^3/uL (4.0-10.0)
[2022-01-04 17:52] LABS: HEMOGLOBIN A1c 11.7 %
[2022-01-04 18:15] LABS: ALBUMIN 3.6 GM/DL (3.2-5.2); ALT/SGPT 88 U/L (12-78); BILIRUBIN,TOTAL 0.4 MG/DL (0.2-1.0); BLOOD UREA NITROGEN 8 MG/DL (7-18); CALCIUM LEVEL 8.8 MG/DL (8.5-10.1); CARBON DIOXIDE LEVEL 26 MEQ/L (21-32); CHLORIDE LEVEL 102 MEQ/L (98-107); CREATININE FOR GFR 0.77 MG/DL (0.70-1.30); GLOMERULAR FILTRATION RATE > 60.0 (>56); GLUCOSE, FASTING 352 MG/DL (70-100); LIPASE 1450 U/L (73-393); POTASSIUM SERUM 4.2 MEQ/L (3.5-5.1); SODIUM LEVEL 134 MEQ/L (136-145); TOTAL PROTEIN 6.3 GM/DL (6.4-8.2)
[2022-01-04 18:45] LABS: CA19-9 TUMOR MARKER,CARBOHYDRA 31.3 U/ML (<35.0)
== END ==
LOC: M PLALAB 14:34
PROVIDERS: ATTEND Physician Assistant Medical
DX: E11.22 Type 2 diabetes mellitus with diabetic chronic kidney disease (principal); K86.2 Cyst of pancreas; K85.90 Acute pancreatitis without necrosis or infection, unspecified; N18.9 Chronic kidney disease, unspecified
CPT/HCPCS: 36415; 80053; 82378; 83036; 83690; 85025; 86301; U0003

== ENCOUNTER → 2022-03-27 | Outpatient (CLI) | payer MEDICAID ==
[~2022-03-27] MED LIST changes: -ACET1TAB16 PO; +ACET300T48 PO
[2022-03-27 14:24] LABS: BLOOD UREA NITROGEN 9 MG/DL (7-18); CREATININE FOR GFR 0.83 MG/DL (0.70-1.30); GLOMERULAR FILTRATION RATE > 60.0 (>56)
== END ==
LOC: M PLALAB 10:52
DX: Z01.812 Encounter for preprocedural laboratory examination (principal)

== ENCOUNTER → 2022-03-28 | Outpatient (CLI) | payer OTHER ==
[~2022-03-28] MED LIST changes: +ISOVUE-370 76% 100ML VIAL ONE
== END ==
LOC: M PLAIMG 09:06
DX: K86.89 Other specified diseases of pancreas (principal)
CPT/HCPCS: 74177; Q9967

== ENCOUNTER → 2022-10-22 | Outpatient (CLI) | payer OTHER, MEDICAID ==
[~2022-10-22] MED LIST changes: -ISOVUE-370 76% 100ML VIAL ONE
== END ==
LOC: M PAIN 08:00
PROVIDERS: ATTEND Nurse Practitioner Family
DX: G57.92 Unspecified mononeuropathy of left lower limb (principal); G89.29 Other chronic pain; E11.9 Type 2 diabetes mellitus without complications; I25.2 Old myocardial infarction; I10 Essential (primary) hypertension; Z87.891 Personal history of nicotine dependence; Z79.82 Long term (current) use of aspirin; Z79.899 Other long term (current) drug therapy

== ENCOUNTER → 2022-12-10 | Outpatient (CLI) | payer OTHER, MEDICAID | LOC: M PAIN 15:00 | PROVIDERS: ATTEND Nurse Practitioner Family | DX: G57.92 Unspecified mononeuropathy of left lower limb (principal); G89.29 Other chronic pain; E11.9 Type 2 diabetes mellitus without complications; I25.2 Old myocardial infarction; I10 Essential (primary) hypertension; Z87.891 Personal history of nicotine dependence; Z79.82 Long term (current) use of aspirin; Z79.899 Other long term (current) drug therapy ==

== ENCOUNTER → 2023-01-04 | Outpatient (CLI) | payer OTHER, MEDICAID | LOC: M PAIN 14:15 | PROVIDERS: ATTEND Nurse Practitioner Family | DX: G57.92 Unspecified mononeuropathy of left lower limb (principal); G89.29 Other chronic pain; E11.9 Type 2 diabetes mellitus without complications; I25.2 Old myocardial infarction; I10 Essential (primary) hypertension; Z87.891 Personal history of nicotine dependence; Z79.4 Long term (current) use of insulin; Z79.899 Other long term (current) drug therapy ==

== ENCOUNTER → 2023-02-01 | Outpatient (CLI) | payer OTHER, MEDICAID | LOC: M PAIN 11:30 | PROVIDERS: ATTEND Nurse Practitioner Family | DX: G57.92 Unspecified mononeuropathy of left lower limb (principal); G89.29 Other chronic pain; E11.9 Type 2 diabetes mellitus without complications; I10 Essential (primary) hypertension; Z87.891 Personal history of nicotine dependence; Z79.4 Long term (current) use of insulin; Z79.899 Other long term (current) drug therapy ==

== ENCOUNTER → 2023-04-11 | Outpatient (CLI) | payer OTHER, MEDICAID | LOC: M PAIN 10:30 | PROVIDERS: ATTEND Nurse Practitioner Family | DX: D36.10 Benign neoplasm of peripheral nerves and autonomic nervous system, unspecified (principal); G89.29 Other chronic pain; E11.9 Type 2 diabetes mellitus without complications; I25.2 Old myocardial infarction; I10 Essential (primary) hypertension; Z87.891 Personal history of nicotine dependence; Z79.4 Long term (current) use of insulin; Z79.899 Other long term (current) drug therapy ==

== ENCOUNTER → 2023-05-14 | Outpatient (CLI) | payer OTHER, MEDICAID ==
[~2023-05-14] MED LIST changes: +ISOVUE-M 300 61% 15ML VIAL As Ordered ONE; +LIDOCAINE 1% SDV 30ML VIAL As Ordered ONE; +NORCO, ANEXSIA 5/325MG TABLET (HYDROcodone/ACETAMINOPHEN) As Ordered ONE; +TRIAMCINOLONE ACETONIDE SUSP 40MG/ML 1ML VIAL As Ordered ONE; +diazePAM 5MG TABLET As Ordered ONE
== END ==
LOC: M PAIN 14:00
PROVIDERS: ATTEND Anesthesiology
DX: D36.10 Benign neoplasm of peripheral nerves and autonomic nervous system, unspecified (principal); E11.9 Type 2 diabetes mellitus without complications; I25.2 Old myocardial infarction; I10 Essential (primary) hypertension; Z87.891 Personal history of nicotine dependence; Z79.4 Long term (current) use of insulin; Z79.899 Other long term (current) drug therapy
CPT/HCPCS: 11900; J0665; J3301

== ENCOUNTER → 2023-06-10 | Outpatient (CLI) | payer OTHER ==
[~2023-06-10] MED LIST changes: -ISOVUE-M 300 61% 15ML VIAL As Ordered ONE; -LIDOCAINE 1% SDV 30ML VIAL As Ordered ONE; -NORCO, ANEXSIA 5/325MG TABLET (HYDROcodone/ACETAMINOPHEN) As Ordered ONE; -TRIAMCINOLONE ACETONIDE SUSP 40MG/ML 1ML VIAL As Ordered ONE; -diazePAM 5MG TABLET As Ordered ONE
[2023-06-10 16:01] LABS: BASO # 0.1 10^3/uL (0.0-0.2); BASO % 0.6 % (0.0-1.0); EOS # 0.1 10^3/uL (0.0-0.5); EOS % 1.4 % (0.0-3.0); HEMATOCRIT 41.8 % (42.0-52.0); HEMOGLOBIN 13.7 g/dl (13.5-17.5); LYMPH # 2.4 10^3/uL (1.5-5.0); LYMPH % 30.6 % (24.0-44.0); MEAN CORPUSCULAR HEMOGLOBIN 31.1 pg (27.0-33.0); MEAN CORPUSCULAR HGB CONC 32.8 g/dl (32.0-36.5); MEAN CORPUSCULAR VOLUME 94.8 fl (80.0-96.0); MONO # 0.4 10^3/uL (0.0-0.8); MONO % 5.3 % (2.0-8.0); NEUTROPHILS # 4.9 10^3/uL (1.5-8.5); NEUTROPHILS % 61.8 % (36.0-66.0); PLATELET COUNT, AUTOMATED 161 10^3/uL (150-450); RED BLOOD COUNT 4.41 10^6/uL (4.30-6.10)
[2023-06-10 16:29] LABS: HEMOGLOBIN A1c 7.1 % (4.0-6.0)
[2023-06-10 16:37] LABS: LIPASE 44 U/L (12-53)
[2023-06-10 16:40] LABS: ALBUMIN 3.9 G/DL (3.2-5.2); ALKALINE PHOSPHATASE 90 U/L (46-116); ALT/SGPT 28 U/L (7.0-40); AST/SGOT 16 U/L (<34); BILIRUBIN,TOTAL 0.5 MG/DL (0.3-1.2); BLOOD UREA NITROGEN 5 MG/DL (9-23); CALCIUM LEVEL 8.9 MG/DL (8.3-10.6); CARBON DIOXIDE LEVEL 26 MMOL/L (20-31); CHLORIDE LEVEL 106 MMOL/L (98-107); CHOLESTEROL LEVEL 75 MG/DL (<200); CHOLESTEROL RISK RATIO 2.25 (<5); CREATININE FOR GFR 0.78 MG/DL (0.70-1.30); GLOMERULAR FILTRATION RATE > 60.0 (>49); GLUCOSE, FASTING 205 MG/DL (74-106); HDL CHOLESTEROL 33.2 MG/DL (>40); NON-HDL-C 41.8 MG/DL; SODIUM LEVEL 141 MMOL/L (136-145); TOTAL PROTEIN 6.5 G/DL (5.7-8.2); TRIGLYCERIDES LEVEL 69 MG/DL (<150)
== END ==
LOC: M PLALAB 14:18
PROVIDERS: ATTEND Physician Assistant Medical
DX: K86.2 Cyst of pancreas (principal); K85.90 Acute pancreatitis without necrosis or infection, unspecified; E78.00 Pure hypercholesterolemia, unspecified; E11.22 Type 2 diabetes mellitus with diabetic chronic kidney disease; N40.1 Benign prostatic hyperplasia with lower urinary tract symptoms

== ENCOUNTER → 2023-06-12 | Outpatient (CLI) | payer OTHER, MEDICAID | LOC: M PAIN 09:45 | PROVIDERS: ATTEND Anesthesiology | DX: R10.32 Left lower quadrant pain (principal); D36.10 Benign neoplasm of peripheral nerves and autonomic nervous system, unspecified; E11.9 Type 2 diabetes mellitus without complications; I25.2 Old myocardial infarction; I10 Essential (primary) hypertension; Z86.14 Personal history of Methicillin resistant Staphylococcus aureus infection; Z87.891 Personal history of nicotine dependence; Z79.4 Long term (current) use of insulin; Z79.899 Other long term (current) drug therapy ==

== ENCOUNTER → 2023-08-14 | Outpatient (CLI) | payer OTHER, MEDICAID | LOC: M PAIN 10:15 | PROVIDERS: ATTEND Anesthesiology | DX: G57.92 Unspecified mononeuropathy of left lower limb (principal); D36.10 Benign neoplasm of peripheral nerves and autonomic nervous system, unspecified; G89.29 Other chronic pain; Z87.891 Personal history of nicotine dependence; Z79.4 Long term (current) use of insulin; Z79.899 Other long term (current) drug therapy ==

== ENCOUNTER → 2023-11-14 | Outpatient (CLI) | payer OTHER, MEDICAID | LOC: M PAIN 14:30 | PROVIDERS: ATTEND Nurse Practitioner Family | DX: D36.10 Benign neoplasm of peripheral nerves and autonomic nervous system, unspecified (principal); G89.29 Other chronic pain; I25.10 Atherosclerotic heart disease of native coronary artery without angina pectoris; I25.2 Old myocardial infarction; I10 Essential (primary) hypertension; E11.9 Type 2 diabetes mellitus without complications; M54.50 Low back pain, unspecified; Z79.899 Other long term (current) drug therapy; Z87.891 Personal history of nicotine dependence ==

== ENCOUNTER → 2024-01-02 | Outpatient (CLI) | payer OTHER, MEDICAID ==
[~2024-01-02] MED LIST changes: -ASPI-161 PO; +ASPI-615 PO; +LIDOCAINE 1% SDV 30ML VIAL As Ordered ONE; +NORCO, ANEXSIA 5/325MG TABLET (HYDROcodone/ACETAMINOPHEN) As Ordered ONE; +TRIAMCINOLONE ACETONIDE SUSP 40MG/ML 1ML VIAL As Ordered ONE; +diazePAM 5MG TABLET As Ordered ONE
== END ==
LOC: M PAIN 14:30
PROVIDERS: ATTEND Anesthesiology
DX: D36.10 Benign neoplasm of peripheral nerves and autonomic nervous system, unspecified (principal); E11.9 Type 2 diabetes mellitus without complications; I10 Essential (primary) hypertension; Z79.4 Long term (current) use of insulin; Z79.02 Long term (current) use of antithrombotics/antiplatelets; Z87.891 Personal history of nicotine dependence
CPT/HCPCS: 11900; J0665; J3301

== ENCOUNTER → 2024-02-06 | Outpatient (CLI) | payer MEDICAID, OTHER ==
[~2024-02-06] MED LIST changes: -LIDOCAINE 1% SDV 30ML VIAL As Ordered ONE; -NORCO, ANEXSIA 5/325MG TABLET (HYDROcodone/ACETAMINOPHEN) As Ordered ONE; -TRIAMCINOLONE ACETONIDE SUSP 40MG/ML 1ML VIAL As Ordered ONE; -diazePAM 5MG TABLET As Ordered ONE
== END ==
LOC: M PAIN 15:00
PROVIDERS: ATTEND Nurse Practitioner Family
DX: D36.10 Benign neoplasm of peripheral nerves and autonomic nervous system, unspecified (principal); G89.29 Other chronic pain; I25.10 Atherosclerotic heart disease of native coronary artery without angina pectoris; I25.2 Old myocardial infarction; I10 Essential (primary) hypertension; K76.0 Fatty (change of) liver, not elsewhere classified; E11.9 Type 2 diabetes mellitus without complications; M54.50 Low back pain, unspecified; Z87.891 Personal history of nicotine dependence; Z79.899 Other long term (current) drug therapy

== ENCOUNTER → 2024-03-04 | Outpatient (CLI) | payer OTHER, MEDICAID | LOC: M PAIN 09:30 | PROVIDERS: ATTEND Anesthesiology | DX: D36.10 Benign neoplasm of peripheral nerves and autonomic nervous system, unspecified (principal); G57.92 Unspecified mononeuropathy of left lower limb; G89.29 Other chronic pain; M54.50 Low back pain, unspecified; I25.10 Atherosclerotic heart disease of native coronary artery without angina pectoris; I25.2 Old myocardial infarction; K76.0 Fatty (change of) liver, not elsewhere classified; E11.9 Type 2 diabetes mellitus without complications; Z87.891 Personal history of nicotine dependence; Z79.899 Other long term (current) drug therapy ==

== ENCOUNTER → 2024-03-25 | Outpatient (CLI) | payer OTHER | LOC: M PAIN 11:45 | PROVIDERS: ATTEND Anesthesiology | DX: G57.92 Unspecified mononeuropathy of left lower limb (principal); Z87.891 Personal history of nicotine dependence ==

== ENCOUNTER → 2024-05-18 | Outpatient (CLI) | payer OTHER | LOC: M RAD 13:04 | PROVIDERS: ATTEND Surgery | DX: K40.91 Unilateral inguinal hernia, without obstruction or gangrene, recurrent (principal); Z98.890 Other specified postprocedural states ==

== ENCOUNTER → 2024-05-27 | Outpatient (CLI) | payer OTHER | LOC: M PAIN 09:00 | PROVIDERS: ATTEND Anesthesiology | DX: G57.92 Unspecified mononeuropathy of left lower limb (principal); G89.29 Other chronic pain; M54.50 Low back pain, unspecified; I25.10 Atherosclerotic heart disease of native coronary artery without angina pectoris; I10 Essential (primary) hypertension; K76.0 Fatty (change of) liver, not elsewhere classified; E11.9 Type 2 diabetes mellitus without complications; Z87.891 Personal history of nicotine dependence; Z79.899 Other long term (current) drug therapy ==

== ENCOUNTER → 2024-08-19 | Outpatient (CLI) | payer OTHER | LOC: M PAIN 09:30 | PROVIDERS: ATTEND Anesthesiology | DX: G57.92 Unspecified mononeuropathy of left lower limb (principal); G89.29 Other chronic pain; M54.50 Low back pain, unspecified; I25.10 Atherosclerotic heart disease of native coronary artery without angina pectoris; I25.2 Old myocardial infarction; I10 Essential (primary) hypertension; K76.0 Fatty (change of) liver, not elsewhere classified; E11.9 Type 2 diabetes mellitus without complications; Z87.891 Personal history of nicotine dependence; Z79.899 Other long term (current) drug therapy ==

== ENCOUNTER → 2024-10-21 | Outpatient (CLI) | payer OTHER | LOC: M PAIN 13:00 | PROVIDERS: ATTEND Anesthesiology | DX: D36.10 Benign neoplasm of peripheral nerves and autonomic nervous system, unspecified (principal); G57.92 Unspecified mononeuropathy of left lower limb; G89.29 Other chronic pain; I25.10 Atherosclerotic heart disease of native coronary artery without angina pectoris; M54.50 Low back pain, unspecified; I25.2 Old myocardial infarction; I10 Essential (primary) hypertension; E11.9 Type 2 diabetes mellitus without complications; Z87.891 Personal history of nicotine dependence; Z79.899 Other long term (current) drug therapy ==

== ENCOUNTER → 2024-11-17 | Outpatient (CLI) | payer OTHER ==
[~2024-11-17] MED LIST changes: +LIDOCAINE 1% SDV 30ML VIAL As Ordered ONE; +NORCO, ANEXSIA 5/325MG TABLET (HYDROcodone/ACETAMINOPHEN) As Ordered ONE; +TRIAMCINOLONE ACETONIDE SUSP 40MG/ML 1ML VIAL As Ordered ONE; +diazePAM 5MG TABLET As Ordered ONE
== END ==
LOC: M PAIN 14:30
PROVIDERS: ATTEND Anesthesiology
DX: G58.9 Mononeuropathy, unspecified (principal); E11.9 Type 2 diabetes mellitus without complications; I10 Essential (primary) hypertension; I25.10 Atherosclerotic heart disease of native coronary artery without angina pectoris; I25.2 Old myocardial infarction; Z87.891 Personal history of nicotine dependence; Z79.899 Other long term (current) drug therapy
CPT/HCPCS: 11900; J0665; J3301

== ENCOUNTER → 2024-12-08 | Outpatient (CLI) | payer OTHER ==
[~2024-12-08] MED LIST changes: -LIDOCAINE 1% SDV 30ML VIAL As Ordered ONE; -NORCO, ANEXSIA 5/325MG TABLET (HYDROcodone/ACETAMINOPHEN) As Ordered ONE; -TRIAMCINOLONE ACETONIDE SUSP 40MG/ML 1ML VIAL As Ordered ONE; -diazePAM 5MG TABLET As Ordered ONE
== END ==
LOC: M PAIN 11:30
PROVIDERS: ATTEND Anesthesiology
DX: D36.10 Benign neoplasm of peripheral nerves and autonomic nervous system, unspecified (principal); G57.92 Unspecified mononeuropathy of left lower limb; Z79.4 Long term (current) use of insulin; Z79.82 Long term (current) use of aspirin; Z79.899 Other long term (current) drug therapy; Z87.891 Personal history of nicotine dependence

== ENCOUNTER → 2025-01-07 | Outpatient (CLI) | payer MEDICARE ==
[2025-01-07 14:35] LABS: BASO # 0.1 10^3/uL (0.0-0.2); BASO % 0.6 % (0.0-1.0); EOS # 0.1 10^3/uL (0.0-0.5); EOS % 1.2 % (0.0-3.0); HEMATOCRIT 48.9 % (42.0-52.0); HEMOGLOBIN 16.3 g/dl (13.5-17.5); LYMPH # 2.7 10^3/uL (1.5-5.0); LYMPH % 27.4 % (24.0-44.0); MEAN CORPUSCULAR HEMOGLOBIN 31.5 pg (27.0-33.0); MEAN CORPUSCULAR HGB CONC 33.3 g/dl (32.0-36.5); MEAN CORPUSCULAR VOLUME 94.4 fl (80.0-96.0); MONO # 0.7 10^3/uL (0.0-0.8); MONO % 7.2 % (2.0-8.0); NEUTROPHILS # 6.3 10^3/uL (1.5-8.5); NEUTROPHILS % 63.3 % (36.0-66.0); PLATELET COUNT, AUTOMATED 277 10^3/uL (150-450); RED BLOOD COUNT 5.18 10^6/uL (4.30-6.10)
[2025-01-07 15:00] LABS: HEMOGLOBIN A1c 8.4 % (4.0-6.0)
[2025-01-07 15:02] LABS: PSA SCREENING 1.35 NG/ML (< 4.00)
[2025-01-07 15:03] LABS: CK-MB VALUE MASS 1.1 NG/ML (<3.6)
[2025-01-07 15:05] LABS: LIPASE 29 U/L (12-53)
[2025-01-07 15:07] LABS: ALBUMIN 4.3 G/DL (3.2-5.2); ALKALINE PHOSPHATASE 109 U/L (40-129); ALT/SGPT 30 U/L (7.0-40); AST/SGOT 18 U/L (<34); BILIRUBIN,TOTAL 0.4 MG/DL (0.3-1.2); BLOOD UREA NITROGEN 12 MG/DL (9-23); CALCIUM LEVEL 9.4 MG/DL (8.3-10.6); CARBON DIOXIDE LEVEL 26 MMOL/L (20-31); CHLORIDE LEVEL 107 MMOL/L (98-107); CHOLESTEROL LEVEL 87 MG/DL (<200); CHOLESTEROL RISK RATIO 3.15 (<5); CPK CREATINE PHOSPHOKINASE 128 U/L (46-171); CREATININE FOR GFR 0.72 MG/DL (0.70-1.30); GLOMERULAR FILTRATION RATE > 60.0 (>49); GLUCOSE, FASTING 220 MG/DL (74-106); HDL CHOLESTEROL 27.6 MG/DL (>40); LDL CHOLESTEROL 39.4 MG/DL (<100); MB/CK RELATIVE INDEX 0.85 (< OR =4); NON-HDL-C 59.4 MG/DL; POTASSIUM SERUM 4.7 MMOL/L (3.5-5.1); SODIUM LEVEL 139 MMOL/L (136-145); TOTAL PROTEIN 7.2 G/DL (5.7-8.2); TRIGLYCERIDES LEVEL 100 MG/DL (<150)
[2025-01-07 15:26] LABS: CA19-9 TUMOR MARKER,CARBOHYDRA 23.4 U/ML (<35.0)
== END ==
LOC: M PLALAB 11:05
PROVIDERS: ATTEND Physician Assistant Medical
DX: Z00.00 Encounter for general adult medical examination without abnormal findings (principal); K86.2 Cyst of pancreas; E11.22 Type 2 diabetes mellitus with diabetic chronic kidney disease; E78.00 Pure hypercholesterolemia, unspecified; N40.1 Benign prostatic hyperplasia with lower urinary tract symptoms; I25.10 Atherosclerotic heart disease of native coronary artery without angina pectoris; R07.89 Other chest pain; Z12.5 Encounter for screening for malignant neoplasm of prostate; G89.3 Neoplasm related pain (acute) (chronic); M33.93 Dermatopolymyositis, unspecified without myopathy
CPT/HCPCS: 36415; 80053; 80061; 82550; 82553; 83036; 83690; 83874; 84484; 85025; 86301; G0103

== ENCOUNTER → 2025-06-15 | Outpatient (REF) | payer MEDICARE ==
[~2025-06-15] MED LIST changes: +AMIT10TA11 PO; -AMIT10TA7 PO; +LISI40TA10 PO; -LISI40TA4 PO
== END ==
LOC: M SFHCPLAZ 13:11
PROVIDERS: ATTEND Physician Assistant Medical
DX: D22.4 Melanocytic nevi of scalp and neck (principal); L82.1 Other seborrheic keratosis